=== PATIENT | female | born 1945 | race Caucasian/White ===

== ENCOUNTER 2019-06-30 12:16 | Inpatient (IN) | payer MEDICARE ==
[2019-06-30] MEDS ORDERED: MORPHINE SULFATE 2 MG/ML SYRINGE IVP ONE (12:32)
[2019-06-30] MEDS ORDERED: SODIUM CHLORIDE 0.9% 1,000 ML IV ONE (12:32)
[2019-06-30] MEDS ORDERED: ONDANSETRON 4 MG/2 ML VIAL IVP STA (12:33)
--- NOTE | 2019-06-30 12:38 | ED ---
Abdominal Pain HPI - General Source: patient, RN notes reviewed, old records reviewed Mode of arrival: wheelchair Limitations: no limitations <Kalpana Little - Last Filed: 06/30/19 15:27> <Shen Sapp - Last Filed: 06/30/19 16:05> - General Chief Complaint: Abdominal Pain Stated Complaint: abd pain Time Seen by Provider: 06/30/19 12:22 - History of Present Illness Initial Comments: Vandana is a 74-year-old female who presents emergency department today for evaluation for left lower quadrant abdominal pain symptoms for the last 4-5 days. Patient reports that she has had poor appetite for the past 5 days and is only been drinking water. She states that she feels somewhat constipated she's not had a bowel movement.. She reports that she is still passing gas. She denies any vomiting. She denies any history of surgeries on her abdomen. She is a smoker. (Kalpana Little) - Related Data Allergies Allergy/AdvReac Type Severity Reaction Status Date / Time varenicline [From Chantix] Allergy Anaphylaxis Verified 06/30/19 15:52 Review of Systems ROS Other: All systems not noted in ROS Statement are negative. <Kalpana Little - Last Filed: 06/30/19 15:27> ROS Other: All systems not noted in ROS Statement are negative. <Shen Sapp - Last Filed: 06/30/19 16:05> ROS Statement: Those systems with pertinent positive or pertinent negative responses have been documented in the HPI. Past Medical History Past Medical History: Asthma, Thyroid Disorder Past Surgical History: No Surgical Hx Reported Smoking Status: Current every day smoker Past Alcohol Use History: None Reported Past Drug Use History: None Reported <Kalpana Little - Last Filed: 06/30/19 15:27> General Exam Limitations: no limitations Head exam: Present: atraumatic, normocephalic, normal inspection Eye exam: Present: normal appearance, PERRL, EOMI. Absent: scleral icterus, conjunctival injection, periorbital swelling ENT exam: Present: normal exam, mucous membranes moist Neck exam: Present: normal inspection. Absent: tenderness, meningismus, lymphadenopathy Respiratory exam: Present: normal lung sounds bilaterally. Absent: respiratory distress, wheezes, rales, rhonchi, stridor Cardiovascular Exam: Present: regular rate, normal rhythm, normal heart sounds. Absent: systolic murmur, diastolic murmur, rubs, gallop, clicks GI/Abdominal exam: Present: soft, tenderness (LLQ tenderness), normal bowel sounds. Absent: distended, guarding, rebound, rigid Extremities exam: Present: normal inspection, full ROM, normal capillary refill. Absent: tenderness, pedal edema, joint swelling, calf tenderness Back exam: Present: normal inspection Neurological exam: Present: alert, oriented X3, CN II-XII intact Psychiatric exam: Present: normal affect, normal mood Skin exam: Present: warm, dry, intact, normal color. Absent: rash <Kalpana Little - Last Filed: 06/30/19 15:27> - General Exam Comments Initial Comments: 74-year-old female. Patient appears in moderate discomfort. (Kalpana Little) Course Vital Signs 06/30/19 06/30/19 12:17 14:00 Temperature 97.7 F Pulse Rate 97 89 Respiratory 18 18 Rate Blood Pressure 107/70 132/80 O2 Sat by Pulse 97 96 Oximetry Medical Decision Making - Lab Data Result diagrams: 06/30/19 12:37 06/30/19 12:37 - Radiology Data Radiology results: report reviewed <Kalpana Little - Last Filed: 06/30/19 15:27> - Lab Data Result diagrams: 06/30/19 12:37 06/30/19 12:37 <Shen Sapp - Last Filed: 06/30/19 16:05> - Medical Decision Making This patient's a 74-year-old female presents emergency department today with left lower quadrant abdominal pain. She initially thought it was related to constipation. Vital signs are stable. She is a long smoking history. Patient at this time has no vomiting. She denies some left lower quadrant tenderness and guarding. Patient had lab work which showed normal lactic acid normal white blood cell,. Hemoglobin is 10. Patient has no previous labs to compare from. She's had no previous CT scans. Due to tenderness CAT scan was completed. There is evidence of aortic occlusion with reconstitution and femoral arteries. Patient does have dorsalis pedis and posterior tibial pulse auscultated on Doppler bilaterally. Extremity's are warm. No concern for acute occlusion I believe that this is likely chronic and patient has collateral vessels. CT also showed evidence of pleural masses concerning for metastases as well as possible mass or on the pancreatic duct. Computed tomography scan shows no evidence of diverticulitis. Is also evidence of lytic lesions over her right L4-L5. Patient was reevaluated continuing to complain of significant left-sided abd ominal pain. Patient was informed of concern for aortic occlusion, pleural masses, and I discussed the elect admit the Patient. Patient's case was discussed with Dr. Sapp. (Kalpana Little) Patient reexamined and reevaluated by myself, Dr. Sapp. Patient resting comfortably in bed. Patient does have moderate left lower abdominal discomfort on exam. Case was discussed with Dr. Crowley, who will admit for hospital call. Case also discussed with Dr. Pederson with vascular who will consult however does not believe patient has emergent vascular concerns. Consults will be placed with surgery as well as oncology. Patient is updated on results and concerns. (Shen Sapp) - Lab Data Lab Results 06/30/19 06/30/19 06/30/19 Range/Units 12:37 12:37 12:37 WBC 9.8 (3.8-10.6) k/uL RBC 3.57 L (3.80-5.40) m/uL Hgb 10.8 L (11.4-16.0) gm/dL Hct 33.5 L (34.0-46.0) % MCV 93.9 (80.0-100.0) fL MCH 30.2 (25.0-35.0) pg MCHC 32.2 (31.0-37.0) g/dL RDW 14.4 (11.5-15.5) % Plt Count 418 (150-450) k/uL Neutrophils % 75 % Lymphocytes % 16 % Monocytes % 5 % Eosinophils % 1 % Basophils % 0 % Neutrophils # 7.3 (1.3-7.7) k/uL Lymphocytes # 1.6 (1.0-4.8) k/uL Monocytes # 0.5 (0-1.0) k/uL Eosinophils # 0.1 (0-0.7) k/uL Basophils # 0.0 (0-0.2) k/uL PT 9.8 (9.0-12.0) sec INR 0.9 (<1.2) APTT 27.8 (22.0-30.0) sec Sodium 135 L (137-145) mmol/L Potassium 3.9 (3.5-5.1) mmol/L Chloride 101 (98-107) mmol/L Carbon Dioxide 27 (22-30) mmol/L Anion Gap 7 mmol/L BUN 14 (7-17) mg/dL Creatinine 0.64 (0.52-1.04) mg/dL Est GFR (CKD-EPI)AfAm >90 (>60 ml/min/1.73 sqM) Est GFR (CKD-EPI)NonAf 87 (>60 ml/min/1.73 sqM) Glucose 106 H (74-99) mg/dL Plasma Lactic Acid Tal (0.7-2.0) mmol/L Calcium 9.0 (8.4-10.2) mg/dL Total Bilirubin 0.3 (0.2-1.3) mg/dL AST 19 (14-36) U/L ALT 10 (4-34) U/L Alkaline Phosphatase 89 (38-126) U/L Total Protein 6.2 L (6.3-8.2) g/dL Albumin 3.2 L (3.5-5.0) g/dL Amylase 41 (30-110) U/L Lipase 49 (23-300) U/L Urine Color Urine Appearance (Clear) Urine pH (5.0-8.0) Ur Specific [place] (1.001-1.035) Urine Protein (Negative) Urine Glucose (UA) (Negative) Urine Ketones (Negative) Urine Blood (Negative) Urine Nitrite (Negative) Urine Bilirubin (Negative) Urine Urobilinogen (<2.0) mg/dL Ur Leukocyte Esterase (Negative) Urine RBC (0-5) /hpf Urine WBC (0-5) /hpf Ur Squamous Epith Cells (0-4) /hpf Urine Bacteria (None) /hpf Urine Mucus (None) /hpf 06/30/19 06/30/19 Range/Units 12:37 Unknown WBC (3.8-10.6) k/uL RBC (3.80-5.40) m/uL Hgb (11.4-16.0) gm/dL Hct (34.0-46.0) % MCV (80.0-100.0) fL MCH (25.0-35.0) pg MCHC (31.0-37.0) g/dL RDW (11.5-15.5) % Plt Count (150-450) k/uL Neutrophils % % Lymphocytes % % Monocytes % % Eosinophils % % Basophils % % Neutrophils # (1.3-7.7) k/uL Lymphocytes # (1.0-4.8) k/uL Monocytes # (0-1.0) k/uL Eosinophils # (0-0.7) k/uL Basophils # (0-0.2) k/uL PT (9.0-12.0) sec INR (<1.2) APTT (22.0-30.0) sec Sodium (137-145) mmol/L Potassium (3.5-5.1) mmol/L Chloride (98-107) mmol/L Carbon Dioxide (22-30) mmol/L Anion Gap mmol/L BUN (7-17) mg/dL Creatinine (0.52-1.04) mg/dL Est GFR (CKD-EPI)AfAm (>60 ml/min/1.73 sqM) Est GFR (CKD-EPI)NonAf (>60 ml/min/1.73 sqM) Glucose (74-99) mg/dL Plasma Lactic Acid Tal 1.8 (0.7-2.0) mmol/L Calcium (8.4-10.2) mg/dL Total Bilirubin (0.2-1.3) mg/dL AST (14-36) U/L ALT (4-34) U/L Alkaline Phosphatase (38-126) U/L Total Protein (6.3-8.2) g/dL Albumin (3.5-5.0) g/dL Amylase (30-110) U/L Lipase (23-300) U/L Urine Color Yellow Urine Appearance Clear (Clear) Urine pH 6.0 (5.0-8.0) Ur Specific [place] 1.021 (1.001-1.035) Urine Protein Negative (Negative) Urine Glucose (UA) Negative (Negative) Urine Ketones Negative (Negative) Urine Blood Negative (Negative) Urine Nitrite Negative (Negative) Urine Bilirubin Negative (Negative) Urine Urobilinogen 2.0 (<2.0) mg/dL Ur Leukocyte Esterase Moderate H (Negative) Urine RBC 2 (0-5) /hpf Urine WBC 5 (0-5) /hpf Ur Squamous Epith Cells 8 H (0-4) /hpf Urine Bacteria Rare H (None) /hpf Urine Mucus Few H (None) /hpf - Radiology Data Focal distal abdominal aortic occlusion with reconstitution of the bilateral femoral arteries. Courtesy is unknown. Vascular surgeon consult recommended. Multiple pleural based masses along the left lung base and pleural Suleiman. Metastasis is a primary consideration. Primary neoplasm is unknown. Dilation of the main pancreatic duct prominence of the common bile duct.. Capillary masses possibility. MRI with contrast to be considered. No CT evidence of acute diverticulitis. Lytic lesions of the right iliac bone and L4 spinous process. Given this suspiciion for pleural metastases these may represent metastatic lesions. (Kalpana Little) Disposition Is patient prescribed a controlled substance at d/c from ED?: No Time of Disposition: 15:29 <Kalpana Little - Last Filed: 06/30/19 15:27> <Shen Sapp - Last Filed: 06/30/19 16:05> Clinical Impression: Chronic distal aortic occlusion, Pleural mass, Left sided abdominal pain Disposition: ADMITTED IP TO THIS HOSP Condition: Stable Referrals: Nonstaff,Physician [REFERRING] - 1-2 days
[2019-06-30 12:49] LABS: Basophils % (A) 0 %; Eosinophils # (A) 0.1 k/uL (0-0.7); Eosinophils % (A) 1 %; HCT 33.5 % (34.0-46.0); HGB 10.8 gm/dL (11.4-16.0); Lymphocytes # (A) 1.6 k/uL (1.0-4.8); Lymphocytes % (A) 16 %; MCH 30.2 pg (25.0-35.0); MCHC 32.2 g/dL (31.0-37.0); MCV 93.9 fL (80.0-100.0); Mean Platelet Volume 7.2; Monocytes # (A) 0.5 k/uL (0-1.0); Monocytes % (A) 5 %; Neutrophils # (A) 7.3 k/uL (1.3-7.7); Neutrophils % (A) 75 %; Platelet Count 418 k/uL (150-450); RBC 3.57 m/uL (3.80-5.40); RDW 14.4 % (11.5-15.5); WBC 9.8 k/uL (3.8-10.6)
[2019-06-30] MEDS: SODIUM CHLORIDE 0.9% 1,000 ML IV SCH (12:56)
[2019-06-30 13:04] LABS: ALT 10 U/L (4-34); AST 19 U/L (14-36); African American GFR (CKD) >90 (>60 ml/min/1.73 sqM); Albumin 3.2 g/dL (3.5-5.0); Alkaline Phosphatase 89 U/L (38-126); Amylase 41 U/L (30-110); Anion Gap 7 mmol/L; Blood Urea Nitrogen 14 mg/dL (7-17); Carbon Dioxide 27 mmol/L (22-30); Chloride 101 mmol/L (98-107); Glucose 106 mg/dL (74-99); INR 0.9 (<1.2); Non-African American GFR(CKD) 87 (>60 ml/min/1.73 sqM); Potassium 3.9 mmol/L (3.5-5.1); Sodium 135 mmol/L (137-145); Total Bilirubin 0.3 mg/dL (0.2-1.3); Total Protein 6.2 g/dL (6.3-8.2)
[2019-06-30 13:05] LABS: Partial Thromboplastin Time 27.8 sec (22.0-30.0); Prothrombin Time 9.8 sec (9.0-12.0)
[2019-06-30 13:38] LABS: Appearance,Urine Clear (Clear); Bacteria,Urine Rare /hpf; Bilirubin,Urine Negative (Negative); Blood,Urine Negative (Negative); Color,Urine Yellow; Glucose,Urine (UA) Negative (Negative); Ketones,Urine Negative (Negative); Leukocyte Esterase,Urine Moderate (Negative); Mucus,Urine Few /hpf; Nitrite,Urine Negative (Negative); Protein,Urine Negative (Negative); RBC,Urine 2 /hpf (0-5); Specific Gravity,Urine 1.021 (1.001-1.035); Squamous Epithelial Cell,Urine 8 /hpf (0-4); WBC,Urine 5 /hpf (0-5)
--- NOTE | 2019-06-30 14:52 | CT ---
EXAMINATION TYPE: CT abdomen pelvis w con DATE OF EXAM: 06/30/2019 HISTORY: LLQ abdominal pain, suspected diverticulitis CT DLP: 761.7mGycm Automated Exposure Control for Dose Reduction was Utilized. CONTRAST: CT scan of the abdomen and pelvis is performed with IV Contrast, patient injected with 100 mL of Isov ue 300. COMPARISON: None. FINDINGS: LUNG BASES: A pleural-based mass along the medial left lower lobe and multiple pleural-based pulmonar y nodules with central hypoattenuation are partially visualized. The largest measures 3.2 x 3.6 cm ma rked on image 1. Multifocal atelectasis is seen of the lung bases, left greater than right as well as multiple benign calcified bilateral granulomas. LIVER/GB: Scattered benign hepatic granulomas. Low-density 2 small to accurately characterize right h epatic lesion on image 29 measuring 5 mm. PANCREAS: There is main pancreatic ductal dilatation of 3.5 cm in the pancreatic body. Although no di screte pancreatic neoplasm is seen there is also prominence of the common bile duct measuring 7 mm th erefore periampullary mass is possible. Pancreatic ductal dilatation could alternatively be on the ba sis of chronic pancreatitis although no calcifications are seen within the parenchyma to support concrete pipe maker sophia pancreatitis. SPLEEN: Numerous splenic benign granulomas are seen. No splenomegaly. ADRENALS: No significant abnormality is seen. KIDNEYS: Slightly lobular contour of the kidneys. No hydronephrosis nor abnormal enhancement seen oth er than a punctate 3 mm medial right cortical too small to accurately characterize lesion on delayed image 18 and in the left lower pole on image 26. BOWEL: There is a moderate hiatal hernia. Appendix is air-filled and within normal limits of size. Mi ld degree colonic fecal stasis in the right hemicolon. Air-fluid levels are scattered within nondilat ed fluid containing small bowel. Overall mild ileus. Stomach is incompletely distended and suboptimal ly visualized. Mild oral contrast limits evaluation of the bowel. UTERUS/ADNEXA: No gross abnormality seen on CT. Pelvic viscera are better visualized on ultrasound. LYMPH NODES: No greater than 1cm abdominal or pelvic lymph nodes are appreciated. OSSEOUS STRUCTURES: Age indeterminant compression deformity with approximately 10% vertebral body hei ght loss is seen of L1. Retrolisthesis of L2 on L3 and L3 on L4 with grade 1 anterolisthesis of L4 on L5 are all likely on a degenerative basis. Endplate sclerosis is most pronounced at L3-L4. Vacuum di sc disease is seen at multiple levels. Multilevel facet arthropathy. Lucent lesion is seen within the L4 spinous process measuring 1.1 cm and is indeterminate. Lytic lesion is seen of the anterior zee x of the right iliac bone on image 36 measuring 8 mm. OTHER: Extensive atherosclerosis is seen of the abdominal aorta and its branches with short segment o cclusion of the abdominal aorta on image 35 and very poor opacification of the common iliac arteries with reconstitution of the bilateral femoral arteries. IMPRESSION: 1. Focal distal abdominal aortic occlusion with reconstitution of the bilateral femoral arteries. Chr onicity is unknown. Vascular surgical consultation recommended. Findings discussed with the ordering provider Kalpana Little by Dr. Ayala at 1448 on 06/30/2019. 2. Multiple pleural-based masses along the visualized left lung/pleural studding. Metastasis is of pr imary consideration. Primary neoplasm unknown. 3. Dilation of the main pancreatic duct and prominence of the common bile duct. Periampullary mass is a possibility and MRI with contrast could be considered for further evaluation. 4. No CT evidence of acute diverticulitis. 5. Lytic lesions of the right iliac bone and L4 spinous process. Given the suspicion for pleural meta stasis these also may represent metastatic lesions.
[2019-06-30] MEDS ORDERED: MORPHINE SULFATE 4 MG/ML SYRINGE IVP STA (15:10)
[2019-06-30] MEDS ORDERED: ONDANSETRON 4 MG/2 ML VIAL IVP PRN (15:30)
[2019-06-30] MEDS ORDERED: NALOXONE 0.4 MG/ML 1 ML VIAL IV PRN (15:30)
[2019-06-30] MEDS ORDERED: KETOROLAC 30 MG/ML 1 ML VIAL IVP PRN (15:30)
[2019-06-30] MEDS ORDERED: IBUPROFEN 400 MG TAB PO PRN (15:30)
[2019-06-30] MEDS ORDERED: ACETAMINOPHEN TAB 325 MG TAB PO PRN (15:30)
[2019-06-30] MEDS ORDERED: TEMAZEPAM 15 MG CAP PO PRN (16:30)
--- NOTE | 2019-06-30 17:01 | XR ---
EXAMINATION TYPE: XR chest 1V portable DATE OF EXAM: 06/30/2019 COMPARISON: None INDICATION: Lung cancer TECHNIQUE: Single frontal view of the chest is obtained. FINDINGS: The heart size is normal. The pulmonary vasculature is normal. There are small nodules within the bilateral lung cartagena including lateral left midlung mid right mid lung and right lung base. Increased linear markings and fullness in her in the left hilar region. Mil d infiltrate may be at the right base. IMPRESSION: 1. Mild infiltrate at the right lower lobe and left perihilar region. 2. Scattered small nodules within the mid lower lung cartagena bilaterally.
--- NOTE | 2019-06-30 17:13 | CT ---
EXAMINATION TYPE: CT chest wo con DATE OF EXAM: 06/30/2019 COMPARISON: CT abdomen pelvis same date HISTORY: lung mass CT DLP: 279.6 mGycm, Automated exposure control for dose reduction was used. CONTRAST: Performed injected with 0 mL of Isovue 300. TECHNIQUE: Axial images were obtained at 5 mm thick sections. Reconstructed images are reviewed on [facility] computer in the coronal plane. FINDINGS: Thyroid is not well visualized. There is pleural thickening at the lateral left apex. These measure 1.7 cm each, image 9 series 204. There is a 2.1 cm pleural-based mass along the medial posterior left apex. Image 12 image 204. There is a mass with spiculated margins measuring 2.4 cm in the periphery of the left lung. Series 204 imag e 22. There is a lytic lesion within the anterior rib on the left midlung. Series 204 image 34. This has so me apparent pleural thickening and measures 1.6 cm in depth. Additional lytic lesions are within late ral left ribs there is extensive pleural thickening at the left base. There is a lingular mass measuring 2.1 x 1.1 cm, series 204 image 36. Scattered calcifications appear well-circumscribed and likely granuloma. An eccentric calcification i s within one of the masses at the left apex. No enlarged mediastinal or hilar adenopathy is evident. Calcified granuloma are at the bilateral in frahilar regions. The ascending aorta diameter at the level of the main pulmonary artery is 3.8 cm. The main pulmonary artery diameter at the bifurcation is 2.8 cm. Hiatal hernia is present. Limited CT sections are obtained through the upper abdomen. Calcified granuloma are scattered within the spleen. A few calcified granuloma are suspected within the liver. On bone windows note is made of a large lytic lesion within the posterior medial left 12th rib region which has close approximation with the exiting foramen. Superior endplate compression deformity of t anterior L1 is of indeterminate age. This could be acute in the proper clinical setting. Right 11th medial rib ninth medial posterior rib fourth lateral rib left side, anterior left fifth ri b, sixth lateral rib ninth lateral rib are notable for erosive lesions. Graft couple of old right lat eral rib fractures are in the lower rectus. IMPRESSIONS: 1. Other at least 2 solid appearing lesions within the left upper and within the lingular lung cartagena . The left upper lobe spiculated mass measuring 2.4 cm could be a primary lesion. 2. Extensive pleural-based lesions, the majority of which appear to be arising from lytic lesions wit hin the ribs adjacent are throughout the left upper mid and lower lung field. 3. There appear to be calcified granulomatous lesions, lymphadenopathy within the mediastinum, an mary er and splenic lesions which may be chronic. 4. Superior endplate compression deformity in the region of L1 should be considered. Correlate with t he patient's symptoms
--- NOTE | 2019-06-30 17:14 | HP ---
HISTORY AND PHYSICAL DATE OF SERVICE: 06/30/2019 CHIEF COMPLAINT: Abdominal pain and as well as anorexia. HISTORY OF PRESENT ILLNESS: This is a 74-year-old woman with a past medical history of multiple medical problems including history of asthma, hypothyroidism, history of nicotine dependence, being followed by Dr. Yousuf Wallace in the outpatient setting, not feeling well over the past 4 days. Patient has a poor appetite and the patient is monitoring water. The patient was previously constipated. Patient apparently had one episode of diarrhea and the patient is subsequently complaining of pain in the left lower quadrant. Patient also has significant weight loss over the past several weeks and also felt to be anemic according to her. A CAT scan of the abdomen was done in the ER which showed multiple findings including focal distal abdominal aortic occlusion with reconstitution of the bilateral femoral arteries and multiple pleural-based masses were noted with left lung and pleural stenting and also some dilatation of the main pancreatic duct was also noted. Hepatic ampullary mass is a possibility. Lytic lesion of the right iliac bone with L4 spinous process also noted. The patient was admitted for further evaluation and treatment. There is no history of fever, chills or rigors. No history of headache, loss of consciousness, seizures. PAST MEDICAL HISTORY: Asthma, hypothyroidism, history of nicotine dependence. MEDICATIONS: Prior to admission include: 1. Levothyroxine 137 mcg p.o. daily. 2. Lipitor 80 mg q.h.s. 3. Tylenol 1000 mg p.o. b.i.d. ALLERGIES: CHANTIX. FAMILY HISTORY: No history of heart disease or strokes in the family. SOCIAL HISTORY: History of smoking, no history of alcohol intake. REVIEW OF SYSTEMS: ENT: No diminished vision. CARDIOVASCULAR: No angina. RESPIRATION: No cough. GI: As mentioned earlier. : As mentioned earlier. NERVOUS SYSTEM: No numbness, weakness. ALLERGY/IMMUNOLOGY: As mentioned earlier HEMATOLOGY: No history of anemia. ENDOCRINE: Hypothyroidism. CONSTITUTIONAL: As mentioned earlier. DERMATOLOGY: Negative. RHEUMATOLOGY: Negative. PSYCHIATRY: As mentioned earlier. PHYSICAL EXAM: Patient is alert, oriented x3. Pulse is 89, blood pressure 132/80, respiration 18, temperature 97.7, pulse ox 98% on room air. HEENT: Oral mucosa moist. NECK: No jugular venous distention. No lymph node enlargement. CARDIOVASCULAR: S1, S2, muffled. RESPIRATION: Breath sounds diminished at the bases. No rhonchi. No crackles. ABDOMEN: Soft, mild diffuse tenderness. Mild diffuse distension in the lower part present, even turning in the bed is also difficult for the patient. Bowel sounds diminished, no ascites. LEGS: No edema, no swelling. NERVOUS SYSTEM: Higher functions as mentioned earlier. Moves all 4 limbs. No focal motor or sensory deficit. LYMPHATICS: No lymph node enlargement in the neck or axillae. SKIN: No ulcer, rash or bleeding. JOINTS: No ulcers in the joints, no active deforming arthropathy. LABS: WBC is 9.8, hemoglobin is 10.8, sodium 135, albumin is 2.2, UA noted. ASSESSMENT: 1. Left lower quadrant abdominal pain with lytic lesions in the right iliac bone and L4 spinous process, rule out malignancy. 2. Focal abdominal aortic occlusion with reconstitution with bilateral femoral arteries with possibly aortic atherosclerosis. 3. Multiple pleural-based masses based on the left lung pleural area. 4. Hyponatremia. 5. Anemia, normocytic anemia of chronic disease. 6. Significant weight loss recently. 7. History of asthma. 8. Hypothyroidism. 9. History of an ongoing nicotine dependence. RECOMMENDATIONS AND DISCUSSION: This is a 74-year-old woman who presented with multiple complex medical issues. At this time, I recommend to continue current medications, symptomatic treatment. Otherwise, infectious etiology of the abdominal pain is unlikely at this time. However, will continue to monitor. The patient had multiple abnormalities on the CAT scan of abdomen. I would also recommend a CAT scan of the chest and CT of the head to complete the workup. Otherwise, CA-125 is also being ordered. Will recommend evaluation with Gastroenterology and Surgery and continue to monitor. Further recommendations to follow. A copy of this dictation being forwarded to Endovascular and also a copy to be forwarded to Dr. Yousuf Wallace who is the primary physician. MMODL / IJN: [id number] /
--- NOTE | 2019-06-30 18:52 | P.CONS ---
History of Present Illness - Reason for Consult Consult date: 06/30/19 Appearance of metastatic cancer Requesting physician: Kalpana Little - Chief Complaint Abdominal Pain - History of Present Illness Ms Knox is a 74-year-old female who presented to the emergency department 06/30/19 with left lower quadrant abdominal pain. She initially thought it was related to constipation. She denied nausea or vomiting. CT scan of abdomen and pelvis was performed secondary to her complaints. Identified was concern of possible mass in relation to pancreatic duct as well as suspicious pleural masses, concerning for metastatic disease. There was suspicious evidence of lytic lesions over L4, L5 therefore oncology has been consulted. Vascular also was notified for aortic occlusion. Her bloodwork is stable, with the exception of some mild normocytic anemia. patient was seen through telemed visit.Her symptoms started about a week ago and it has been hard to eat, therefore weight loss, unsure of how much in a week. She denies recent visits for mammogram or colonoscopy, states it has been a few years. She asked me to call sister Zehra regarding situation. Review of Systems A 14 point review of systems assessed and completed and all negative except HPI Past Medical History Past Medical History: Asthma, Thyroid Disorder Past Surgical History: No Surgical Hx Reported Smoking Status: Current every day smoker Past Alcohol Use History: None Reported Past Drug Use History: None Reported Medications and Allergies Home Medications Medication Instructions Recorded Confirmed Type Acetaminophen Tab [Tylenol Tab] 1,000 mg PO BID 06/30/19 06/30/19 History Atorvastatin [Lipitor] 80 mg PO HS 06/30/19 06/30/19 History Levothyroxine Sodium 137 mcg PO DAILY 06/30/19 06/30/19 History Allergies Allergy/AdvReac Type Severity Reaction Status Date / Time varenicline [From Chantix] Allergy Anaphylaxis Verified 06/30/19 15:52 Physical Exam Vitals: Vital Signs Temp Pulse Pulse Resp BP BP Pulse Ox 06/30/19 17:36 97.8 F 92 16 121/71 95 06/30/19 16:50 98.6 F 81 16 100/71 97 06/30/19 14:00 89 18 132/80 96 06/30/19 12:17 97.7 F 97 18 107/70 97 Intake and Output 06/30/19 06/30/19 06/30/19 06:59 14:59 22:59 Other: Weight 52.163 kg Telemed visit with patient No acute distress Alert and oriented No increased respiratory effort noted Results CBC & Chem 7: 06/30/19 12:37 06/30/19 12:37 Labs: Abnormal Lab Results - Last 24 Hours (Table) 06/30/19 06/30/19 06/30/19 Range/Units 12:37 12:37 Unknown RBC 3.57 L (3.80-5.40) m/uL Hgb 10.8 L (11.4-16.0) gm/dL Hct 33.5 L (34.0-46.0) % Sodium 135 L (137-145) mmol/L Glucose 106 H (74-99) mg/dL Total Protein 6.2 L (6.3-8.2) g/dL Albumin 3.2 L (3.5-5.0) g/dL Ur Leukocyte Esterase Moderate H (Negative) Ur Squamous Epith Cells 8 H (0-4) /hpf Urine Bacteria Rare H (None) /hpf Urine Mucus Few H (None) /hpf CT scan - abdomen: report reviewed CT scan - chest: report reviewed CT scan - pelvis: report reviewed Assessment and Plan Plan: Assessment and Recommendations: Pleural Masses: - Suspicious for malignancy - likely metastatic Abnormality near Pancreatic Duct: - MR is ordered - GI on consult to evaluate - If further suspicion of pancreatic malignancy will need tissue biopsy Normocytic Anemia: - WOrk-up placed Aortic Occlusion: - Per Vascular Overall picture is highly suspicious for metastatic malignant process: - MRI of the brain and bone scan ordered - Interventional Radiology asked to obtain biopsy of peripheral pleural lung nodule - Further recs to follow Sister Zehra will be called per patients request. Thank you for allowing us to participate in the care of this patient we will follow along with you
[2019-06-30] MEDS: MORPHINE SULFATE 4 MG/ML SYRINGE IV PRN (19:16)
[2019-06-30] MEDS: NICOTINE 14MG/24HR PATCH TRANSDERM SCH (19:19)
[2019-06-30 20:00] LABS: Glucose,Whole Blood 143 mg/dL (75-99)
[2019-06-30] MEDS: HYDROcodone/APAP 5-325MG 1 EACH TAB PO PRN (21:00)
[2019-06-30] MEDS: HEPARIN SODIUM,PORCINE 5,000 UNIT/ML 1 ML VIAL SQ SCH (21:00)
[2019-06-30] MEDS: ATORVASTATIN 80 MG TAB PO SCH (21:00)
[2019-06-30] MEDS: SENNOSIDES-DOCUSATE SODIUM 1 EACH TAB PO SCH (21:01)
[2019-07-01] MEDS: SODIUM CHLORIDE 0.9% 1,000 ML IV SCH ×3 (00:05→14:56)
[2019-07-01] MEDS: MORPHINE SULFATE 4 MG/ML SYRINGE IV PRN ×4 (00:09→19:51)
[2019-07-01] MEDS: LEVOTHYROXINE 137 MCG TAB PO SCH (05:39)
[2019-07-01 06:29] LABS: Basophils % (A) 0 %; Eosinophils # (A) 0.2 k/uL (0-0.7); Eosinophils % (A) 2 %; HCT 30.1 % (34.0-46.0); HGB 9.7 gm/dL (11.4-16.0); Lymphocytes # (A) 1.3 k/uL (1.0-4.8); Lymphocytes % (A) 17 %; MCH 30.8 pg (25.0-35.0); MCHC 32.4 g/dL (31.0-37.0); MCV 95.1 fL (80.0-100.0); Mean Platelet Volume 7.6; Monocytes # (A) 0.5 k/uL (0-1.0); Monocytes % (A) 6 %; Neutrophils # (A) 5.7 k/uL (1.3-7.7); Neutrophils % (A) 73 %; Platelet Count 416 k/uL (150-450); RBC 3.16 m/uL (3.80-5.40); RDW 14.6 % (11.5-15.5); WBC 7.9 k/uL (3.8-10.6)
[2019-07-01 06:39] LABS: African American GFR (CKD) >90 (>60 ml/min/1.73 sqM); Amylase 55 U/L (30-110); Anion Gap 3 mmol/L; Blood Urea Nitrogen 9 mg/dL (7-17); Calcium 8.7 mg/dL (8.4-10.2); Carbon Dioxide 28 mmol/L (22-30); Chloride 107 mmol/L (98-107); Glucose 73 mg/dL (74-99); LDH 329 U/L (313-618); Non-African American GFR(CKD) 86 (>60 ml/min/1.73 sqM); Potassium 4.3 mmol/L (3.5-5.1); Sodium 138 mmol/L (137-145)
[2019-07-01 07:27] LABS: Glucose,Whole Blood 113 mg/dL (75-99)
[2019-07-01] MEDS: NICOTINE 14MG/24HR PATCH TRANSDERM SCH (08:05)
[2019-07-01] MEDS: POLYETHYLENE GLYCOL 3350 17 GM POWD.PACK PO SCH (08:06)
[2019-07-01] MEDS: PANTOPRAZOLE 40 MG/10 ML VIAL IV SCH (08:06)
[2019-07-01] MEDS: HEPARIN SODIUM,PORCINE 5,000 UNIT/ML 1 ML VIAL SQ SCH ×2 (08:06→20:30)
[2019-07-01] MEDS: SENNOSIDES-DOCUSATE SODIUM 1 EACH TAB PO SCH ×2 (08:06→20:30)
--- NOTE | 2019-07-01 09:38 | P.GSCN ---
History of Present Illness Consult date: 07/01/19 History of present illness: 74-year-old female presented to the emergency department with complaints of abdominal pain. She states that the pain was mostly in the left lower quadrant. She states that the pain has been going on for approximately a week and has not improved. She also states that she is having difficulty having a bowel movement. She states that over the past week, her diet has mostly consisted of only liquids. She did have breakfast this morning prior to my exam. She denies any nausea or vomiting episodes. She denies any previous surgical history of the abdomen. CT of the abdomen and pelvis was performed that did show dilation of the pancreatic duct and concern for a possible ampullary mass. She has not noted to have any abnormalities of her liver function panel at this time. There is also evidence of aortic occlusion with distal revascularization and vascular surgery is following. Review of Systems All systems: negative Past Medical History Past Medical History: Asthma, Thyroid Disorder Additional Past Medical History / Comment(s): left torn rotator cuff, spot on lung that is cancerous see dr barroso, radiation treatments for lung last guess is december, forgetful per son History of Any Multi-Drug Resistant Organisms: None Reported Past Surgical History: No Surgical Hx Reported Past Anesthesia/Blood Transfusion Reactions: No Reported Reaction Past Psychological History: No Psychological Hx Reported Smoking Status: Current every day smoker Past Alcohol Use History: None Reported Additional Past Alcohol Use History / Comment(s): 6 beers a week if that Past Drug Use History: None Reported - Past Family History Mother Family Medical History: Cancer Additional Family Medical History / Comment(s): breast cancer Father Family Medical History: Chest Pain / Angina, Congestive Heart Failure (CHF) Brother(s) Family Medical History: Cancer Additional Family Medical History / Comment(s): cancer everywhere Medications and Allergies Home Medications Medication Instructions Recorded Confirmed Type Acetaminophen Tab [Tylenol Tab] 1,000 mg PO BID 06/30/19 06/30/19 History Atorvastatin [Lipitor] 80 mg PO HS 06/30/19 06/30/19 History Levothyroxine Sodium 137 mcg PO DAILY 06/30/19 06/30/19 History Allergies Allergy/AdvReac Type Severity Reaction Status Date / Time varenicline [From Chantix] Allergy Anaphylaxis Verified 06/30/19 15:52 Surgical - Exam Osteopathic Statement: *. No significant issues noted on an osteopathic structural exam other than those noted in the History and Physical/Consult. Vital Signs Temp Pulse Resp BP Pulse Ox 97.7 F 97 18 107/70 97 06/30/19 12:17 06/30/19 12:17 06/30/19 12:17 06/30/19 12:17 06/30/19 12:17 - General well nourished, no distress - Eyes PERRL - ENT no hearing loss - Neck trachea midline - Respiratory normal respiratory effort - Abdomen Soft, no significant tenderness throughout the abdomen, nondistended, no rebound, no guarding - Psychiatric oriented to time, oriented to person, oriented to place Results - Labs 07/01/19 05:55 07/01/19 05:55 Abnormal Lab Results - Last 24 Hours (Table) 06/30/19 06/30/19 06/30/19 Range/Units 12:37 12:37 19:59 RBC 3.57 L (3.80-5.40) m/uL Hgb 10.8 L (11.4-16.0) gm/dL Hct 33.5 L (34.0-46.0) % Sodium 135 L (137-145) mmol/L Glucose 106 H (74-99) mg/dL POC Glucose (mg/dL) 143 H (75-99) mg/dL Total Protein 6.2 L (6.3-8.2) g/dL Albumin 3.2 L (3.5-5.0) g/dL Ur Leukocyte Esterase (Negative) Ur Squamous Epith Cells (0-4) /hpf Urine Bacteria (None) /hpf Urine Mucus (None) /hpf 06/30/19 07/01/19 07/01/19 Range/Units Unknown 05:55 05:55 RBC 3.16 L (3.80-5.40) m/uL Hgb 9.7 L (11.4-16.0) gm/dL Hct 30.1 L (34.0-46.0) % Sodium (137-145) mmol/L Glucose 73 L (74-99) mg/dL POC Glucose (mg/dL) (75-99) mg/dL Total Protein (6.3-8.2) g/dL Albumin (3.5-5.0) g/dL Ur Leukocyte Esterase Moderate H (Negative) Ur Squamous Epith Cells 8 H (0-4) /hpf Urine Bacteria Rare H (None) /hpf Urine Mucus Few H (None) /hpf 07/01/19 Range/Units 07:14 RBC (3.80-5.40) m/uL Hgb (11.4-16.0) gm/dL Hct (34.0-46.0) % Sodium (137-145) mmol/L Glucose (74-99) mg/dL POC Glucose (mg/dL) 113 H (75-99) mg/dL Total Protein (6.3-8.2) g/dL Albumin (3.5-5.0) g/dL Ur Leukocyte Esterase (Negative) Ur Squamous Epith Cells (0-4) /hpf Urine Bacteria (None) /hpf Urine Mucus (None) /hpf Microbiology - Last 24 Hours (Table) 06/30/19 Unknown Urine Culture - Preliminary Urine,Voided Diabetes panel 06/30/19 07/01/19 Range/Units 12:37 05:55 Sodium 135 L 138 (137-145) mmol/L Potassium 3.9 4.3 (3.5-5.1) mmol/L Chloride 101 107 (98-107) mmol/L Carbon Dioxide 27 28 (22-30) mmol/L BUN 14 9 (7-17) mg/dL Creatinine 0.64 0.67 (0.52-1.04) mg/dL Glucose 106 H 73 L (74-99) mg/dL Calcium 9.0 8.7 (8.4-10.2) mg/dL AST 19 (14-36) U/L ALT 10 (4-34) U/L Alkaline Phosphatase 89 (38-126) U/L Total Protein 6.2 L (6.3-8.2) g/dL Albumin 3.2 L (3.5-5.0) g/dL Calcium panel 06/30/19 07/01/19 Range/Units 12:37 05:55 Calcium 9.0 8.7 (8.4-10.2) mg/dL Albumin 3.2 L (3.5-5.0) g/dL Pituitary panel 06/30/19 07/01/19 Range/Units 12:37 05:55 Sodium 135 L 138 (137-145) mmol/L Potassium 3.9 4.3 (3.5-5.1) mmol/L Chloride 101 107 (98-107) mmol/L Carbon Dioxide 27 28 (22-30) mmol/L BUN 14 9 (7-17) mg/dL Creatinine 0.64 0.67 (0.52-1.04) mg/dL Glucose 106 H 73 L (74-99) mg/dL Calcium 9.0 8.7 (8.4-10.2) mg/dL Adrenal panel 06/30/19 07/01/19 Range/Units 12:37 05:55 Sodium 135 L 138 (137-145) mmol/L Potassium 3.9 4.3 (3.5-5.1) mmol/L Chloride 101 107 (98-107) mmol/L Carbon Dioxide 27 28 (22-30) mmol/L BUN 14 9 (7-17) mg/dL Creatinine 0.64 0.67 (0.52-1.04) mg/dL Glucose 106 H 73 L (74-99) mg/dL Calcium 9.0 8.7 (8.4-10.2) mg/dL Total Bilirubin 0.3 (0.2-1.3) mg/dL AST 19 (14-36) U/L ALT 10 (4-34) U/L Alkaline Phosphatase 89 (38-126) U/L Total Protein 6.2 L (6.3-8.2) g/dL Albumin 3.2 L (3.5-5.0) g/dL Assessment and Plan Plan: 74-year-old female with suspicious pancreatic lesion and suspected metastatic malignancy. At this point MRI has been ordered for further evaluation. We will await those results and make recommendations based on MRI. Patient may need a tissue biopsy and this may need to be performed with endoscopic ultrasound based on MRI results. Currently, the patient is not in any acute distress requiring urgent surgical intervention. We will continue to follow and make surgical recommendations based on the patient's clinical progress.
[2019-07-01 09:41] VITALS: BMI 21.7
--- NOTE | 2019-07-01 10:40 | P.GSCN ---
History of Present Illness Consult date: 07/01/19 Reason for Consult: aortoiliac occlusion History of present illness: 74 year old female with PMH of asthma, hypothyroidism, nicotine dependence presented to the ER for complaints of abdominal pain, poor appetite and bowel issues including previous constipation and current diarrhea. When in the ER she had left lower quadrant pain and they obtained a CT of the abdomen and pelvis which showed possible pancreatic duct or hepatic ampullary mass with lytic lesions as well as a focal distal aortic occlusion with recon at the femoral arteries. She currently has no complaints of pain in her feet or legs. She does admit to having weakness with ambulation in her legs but no real pain. Weakness presents after walking a couple hundred feet. She denies any pain at rest or history of lower extremity wounds. Currently she denies any fevers, chills, nausea, vomiting, chest pain or shortness of breath. She states her abdominal pain is slightly improved. Review of Systems All systems: negative (what is mentioned in HPI or PMH) Past Medical History Past Medical History: Asthma, Thyroid Disorder Additional Past Medical History / Comment(s): left torn rotator cuff, spot on lung that is cancerous see dr barroso, radiation treatments for lung last guess is december, forgetful per son History of Any Multi-Drug Resistant Organisms: None Reported Past Surgical History: No Surgical Hx Reported Past Anesthesia/Blood Transfusion Reactions: No Reported Reaction Past Psychological History: No Psychological Hx Reported Smoking Status: Current every day smoker Past Alcohol Use History: None Reported Additional Past Alcohol Use History / Comment(s): 6 beers a week if that Past Drug Use History: None Reported - Past Family History Mother Family Medical History: Cancer Additional Family Medical History / Comment(s): breast cancer Father Family Medical History: Chest Pain / Angina, Congestive Heart Failure (CHF) Brother(s) Family Medical History: Cancer Additional Family Medical History / Comment(s): cancer everywhere Medications and Allergies Home Medications Medication Instructions Recorded Confirmed Type Acetaminophen Tab [Tylenol Tab] 1,000 mg PO BID 06/30/19 06/30/19 History Atorvastatin [Lipitor] 80 mg PO HS 06/30/19 06/30/19 History Levothyroxine Sodium 137 mcg PO DAILY 06/30/19 06/30/19 History Allergies Allergy/AdvReac Type Severity Reaction Status Date / Time varenicline [From Chantix] Allergy Anaphylaxis Verified 06/30/19 15:52 Surgical - Exam Vital Signs Temp Pulse Resp BP Pulse Ox 97.7 F 97 18 107/70 97 06/30/19 12:17 06/30/19 12:17 06/30/19 12:17 06/30/19 12:17 06/30/19 12:17 Monophasic dp/pt signals bilaterally Non palpable Femoral, popliteal, dp or pt pulses bilaterally. Slowed capillary refill bilaterally. No wounds, or TTP at the calf bilaterally - General well developed, no distress, moderate pain, chronically ill - Eyes PERRL, normal ocular movement - ENT normal pinna, normal nares - Neck no masses, no bruits - Respiratory normal expansion, normal respiratory effort - Cardiovascular Rhythm: regular - Abdomen Abdomen: tender, no wound, guarding, distended Hernia: none - Integumentary no rash - Neurologic normal coordination, normal sensation, no disoriented - Psychiatric oriented to time, oriented to person, oriented to place, speech is normal Results - Labs 07/01/19 05:55 07/01/19 05:55 Abnormal Lab Results - Last 24 Hours (Table) 06/30/19 06/30/19 06/30/19 Range/Units 12:37 12:37 19:59 RBC 3.57 L (3.80-5.40) m/uL Hgb 10.8 L (11.4-16.0) gm/dL Hct 33.5 L (34.0-46.0) % Sodium 135 L (137-145) mmol/L Glucose 106 H (74-99) mg/dL POC Glucose (mg/dL) 143 H (75-99) mg/dL Total Protein 6.2 L (6.3-8.2) g/dL Albumin 3.2 L (3.5-5.0) g/dL Ur Leukocyte Esterase (Negative) Ur Squamous Epith Cells (0-4) /hpf Urine Bacteria (None) /hpf Urine Mucus (None) /hpf 06/30/19 07/01/19 07/01/19 Range/Units Unknown 05:55 05:55 RBC 3.16 L (3.80-5.40) m/uL Hgb 9.7 L (11.4-16.0) gm/dL Hct 30.1 L (34.0-46.0) % Sodium (137-145) mmol/L Glucose 73 L (74-99) mg/dL POC Glucose (mg/dL) (75-99) mg/dL Total Protein (6.3-8.2) g/dL Albumin (3.5-5.0) g/dL Ur Leukocyte Esterase Moderate H (Negative) Ur Squamous Epith Cells 8 H (0-4) /hpf Urine Bacteria Rare H (None) /hpf Urine Mucus Few H (None) /hpf 07/01/19 Range/Units 07:14 RBC (3.80-5.40) m/uL Hgb (11.4-16.0) gm/dL Hct (34.0-46.0) % Sodium (137-145) mmol/L Glucose (74-99) mg/dL POC Glucose (mg/dL) 113 H (75-99) mg/dL Total Protein (6.3-8.2) g/dL Albumin (3.5-5.0) g/dL Ur Leukocyte Esterase (Negative) Ur Squamous Epith Cells (0-4) /hpf Urine Bacteria (None) /hpf Urine Mucus (None) /hpf Microbiology - Last 24 Hours (Table) 06/30/19 Unknown Urine Culture - Preliminary Urine,Voided Diabetes panel 06/30/19 07/01/19 Range/Units 12:37 05:55 Sodium 135 L 138 (137-145) mmol/L Potassium 3.9 4.3 (3.5-5.1) mmol/L Chloride 101 107 (98-107) mmol/L Carbon Dioxide 27 28 (22-30) mmol/L BUN 14 9 (7-17) mg/dL Creatinine 0.64 0.67 (0.52-1.04) mg/dL Glucose 106 H 73 L (74-99) mg/dL Calcium 9.0 8.7 (8.4-10.2) mg/dL AST 19 (14-36) U/L ALT 10 (4-34) U/L Alkaline Phosphatase 89 (38-126) U/L Total Protein 6.2 L (6.3-8.2) g/dL Albumin 3.2 L (3.5-5.0) g/dL Calcium panel 06/30/19 07/01/19 Range/Units 12:37 05:55 Calcium 9.0 8.7 (8.4-10.2) mg/dL Albumin 3.2 L (3.5-5.0) g/dL Pituitary panel 06/30/19 07/01/19 Range/Units 12:37 05:55 Sodium 135 L 138 (137-145) mmol/L Potassium 3.9 4.3 (3.5-5.1) mmol/L Chloride 101 107 (98-107) mmol/L Carbon Dioxide 27 28 (22-30) mmol/L BUN 14 9 (7-17) mg/dL Creatinine 0.64 0.67 (0.52-1.04) mg/dL Glucose 106 H 73 L (74-99) mg/dL Calcium 9.0 8.7 (8.4-10.2) mg/dL Adrenal panel 06/30/19 07/01/19 Range/Units 12:37 05:55 Sodium 135 L 138 (137-145) mmol/L Potassium 3.9 4.3 (3.5-5.1) mmol/L Chloride 101 107 (98-107) mmol/L Carbon Dioxide 27 28 (22-30) mmol/L BUN 14 9 (7-17) mg/dL Creatinine 0.64 0.67 (0.52-1.04) mg/dL Glucose 106 H 73 L (74-99) mg/dL Calcium 9.0 8.7 (8.4-10.2) mg/dL Total Bilirubin 0.3 (0.2-1.3) mg/dL AST 19 (14-36) U/L ALT 10 (4-34) U/L Alkaline Phosphatase 89 (38-126) U/L Total Protein 6.2 L (6.3-8.2) g/dL Albumin 3.2 L (3.5-5.0) g/dL - Imaging CT scan - abdomen: image reviewed (aortic occlusion focal with collateralization due to chronic nature) Assessment and Plan Assessment: 1. Chronic focal abdominal aortic occlusion 2. Lower extremity claudication Ladonna classification 3 3. Pancreatic abdominal mass with lytic lesions rule out malignancy 4. Anemia of chronic disease 5. Tobacco abuse 6. Weight loss Plan: No vascular surgical intervention at this time. Recommend aspirin, statin if able to take. Will follow as outpatient after workup for intraabdominal issues. Thank you for allowing me to participate in your patients care.
[2019-07-01 11:12] LABS: Folate, Serum 5.7 ng/mL
--- NOTE | 2019-07-01 11:17 | NM ---
EXAMINATION TYPE: NM bone scan whole body DATE OF EXAM: 07/01/2019 COMPARISON: NONE HISTORY: Metastatic lung cancer Delayed whole-body scanning was performed following the injection of 23.7 mCi Tc 99m MDP. Images acq uired 3 hours post injection. FINDINGS: There is increased uptake in the ribs bilaterally. On the right this is linear and may be p osttraumatic. On the left this is more irregular. I could not exclude metastases. There is also diffu se increased uptake about about the left shoulder. The right shoulder appears deformed or remodeled. There is no other peripheral activity. IMPRESSION: 1. I COULD NOT EXCLUDE METASTATIC DISEASE TO THE LEFT RIBS. 2. RIGHT RIB ACTIVITY IS BELIEVED TO BE MORE LIKELY POSTTRAUMATIC. 3. ABNORMAL ACTIVITY IN BOTH SHOULDERS.
[2019-07-01 11:18] LABS: % Iron Saturation 11.96 (12.00-45.00); Ferritin 464.8 ng/mL (10.0-291.0); Iron 25 ug/dL (50-170); Total Iron Binding Capacity 209 ug/dL (228-460)
[2019-07-01 11:58] LABS: Glucose,Whole Blood 96 mg/dL (75-99)
--- NOTE | 2019-07-01 13:15 | MR ---
EXAMINATION TYPE: MR brain wo/w con DATE OF EXAM: 07/01/2019 12:57 PM COMPARISON: NONE HISTORY: Pleural mass, eval for metastatic cancer TECHNIQUE: Multiplanar, multiecho imaging of the brain was obtained with and without intravenous adm inistration of 5 mL intravenous Gadavist. FINDINGS: This study is compromised by patient motion artifact. There are generalized changes of sulcal prominence and ventriculomegaly suggestive of atrophic change . There is some atrophy of the corpus callosum. Midline structures are otherwise unremarkable. There is a normal craniocervical junction. Echoplanar diffusion imaging is normal. There are normal vascular flow voids. The orbits are unremarkable. There is no evidence of a CP angle mass lesion. There are scattered high signal lesions in the FLAIR dataset. These are likely on the basis small ves carter disease. There is no acute focal lesion, mass effect or midline shift identified. I do not see ev idence of intracranial blood. The postcontrast images are very much affected by motion. I do not see evidence of abnormal enhancement. IMPRESSION: 1. SUBOPTIMAL EXAMINATION SHOWING NO CONVINCING EVIDENCE OF METASTASES. 2. ATROPHIC CHANGE. 3. SCATTERED FLAIR LESIONS, LIKELY ON THE BASIS OF SMALL VESSEL DISEASE.
--- NOTE | 2019-07-01 13:23 | P.PN ---
Subjective Progress Note Date: 07/01/19 Principal diagnosis: Known Squamous cell carcinoma, Early stage, likely second malignancy versus metastatic cancer After further review of patients history, even though she initially "forgot" she had cancer and received radiation treatments under the care of Dr. 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 01/17/2019 - Diagnostic imaging revealed SEEMA nodule with increased size and FDG as well as new pleural based nodules near superior segment of left lower lobe. It is unclear what happeed after this time in regards to follow-up. Per patients sister she has been falling a lot at home, weak, not eating, and confused intermittently. She said this has been getting worse over the past couple months. Objective - Vital Signs Vital signs: Vital Signs Temp 98.6 F 07/01/19 05:10 Pulse 94 07/01/19 05:10 Resp 22 07/01/19 05:10 BP 107/64 07/01/19 05:10 Pulse Ox 97 07/01/19 05:10 Intake & Output 06/30/19 07/01/19 07/01/19 18:59 06:59 18:59 Intake Total 1190 Balance 1190 Weight 52.163 kg 52.163 kg Intake: Intake, IV Titration 900 Amount Sodium Chloride 0.9% 1, 900 000 ml @ 100 mls/hr IV . Q10H [facility] Rx#:[id number] Oral 290 Other: Voiding Method Toilet Toilet Diaper Incontinent # Voids 1 - Exam Telemed, alert, needs redirection and re-focus. - Labs CBC & Chem 7: 07/01/19 05:55 07/01/19 05:55 Labs: Abnormal Lab Results - Last 24 Hours (Table) 06/30/19 06/30/19 06/30/19 Range/Units 12:37 19:59 Unknown RBC (3.80-5.40) m/uL Hgb (11.4-16.0) gm/dL Hct (34.0-46.0) % Sodium 135 L (137-145) mmol/L Glucose 106 H (74-99) mg/dL POC Glucose (mg/dL) 143 H (75-99) mg/dL Iron (50-170) ug/dL TIBC (228-460) ug/dL % Saturation (12.00-45.00) Ferritin (10.0-291.0) ng/mL Total Protein 6.2 L (6.3-8.2) g/dL Albumin 3.2 L (3.5-5.0) g/dL Ur Leukocyte Esterase Moderate H (Negative) Ur Squamous Epith Cells 8 H (0-4) /hpf Urine Bacteria Rare H (None) /hpf Urine Mucus Few H (None) /hpf 07/01/19 07/01/19 07/01/19 Range/Units 05:55 05:55 07:14 RBC 3.16 L (3.80-5.40) m/uL Hgb 9.7 L (11.4-16.0) gm/dL Hct 30.1 L (34.0-46.0) % Sodium (137-145) mmol/L Glucose 73 L (74-99) mg/dL POC Glucose (mg/dL) 113 H (75-99) mg/dL Iron 25 L (50-170) ug/dL TIBC 209 L (228-460) ug/dL % Saturation 11.96 L (12.00-45.00) Ferritin 464.8 H (10.0-291.0) ng/mL Total Protein (6.3-8.2) g/dL Albumin (3.5-5.0) g/dL Ur Leukocyte Esterase (Negative) Ur Squamous Epith Cells (0-4) /hpf Urine Bacteria (None) /hpf Urine Mucus (None) /hpf Microbiology - Last 24 Hours (Table) 06/30/19 Unknown Urine Culture - Preliminary Urine,Voided Assessment and Plan Plan: Assessment and Recommendations: HX: Early Stage Squamous Cell Carcinoma SEEMA: - Status post stereotactiv radiation at [facility] in 05/2018 - Recurrence, pleural nodules in December 2018, unclear as to follow-up Mental Status Changes, forgetful and falls: - MRI brain pending Pleural Masses: - Suspicious for malignancy - likely metastatic Abnormality near Pancreatic Duct: - MR is ordered - GI on consult to evaluate - If further suspicion of pancreatic malignancy will need tissue biopsy Normocytic Anemia: - Work-up placed Aortic Occlusion: - Per Vascular Overall picture is highly suspicious for metastatic malignant process, probable from original early stage lung cancer diagnosed last year : Due to the current epidemic with COVID 19, patient did verbally consent to telemed visit. discussion with patient, son, review of labs, medications, and pertinent orders placed. Greater than 22 minutes spent during telemedicine visit. er Zehra will be called per patients request.
[2019-07-01] MEDS: FOLIC ACID 1 MG TAB PO SCH (14:55)
[2019-07-01 17:14] LABS: Glucose,Whole Blood 119 mg/dL (75-99)
--- NOTE | 2019-07-01 17:59 | PN ---
PROGRESS NOTE DATE OF SERVICE: 07/01/2019 This 74-year-old woman was admitted with left lower quadrant abdominal pain also was thought to have lung malignancy. Even the patient is unable to remember. The patient apparently might have received some radiation. Evaluation showed possible multiple pleural METS and as well as iliac METS also. MRI of the brain did not show any abnormality. Multiple consultants are following the patient closely. Efforts are also on the way to obtain old records. Dr. Mtz has seen the patient from the vascular point of view and thought to have chronic aortic atherosclerotic disease. No acute interventions needed. Surgery, Dr. Mercer has seen the patient. PAST MEDICAL HISTORY: Reviewed. REVIEW OF SYSTEMS: CARDIOVASCULAR SYSTEM: No angina or palpitations. RESPIRATION: As mentioned earlier. GI: As mentioned earlier. : No dysuria. CURRENT MEDICATIONS: Reviewed and include: 1. Tylenol 650 q.6h p.r.n. 2. [place] 5 mg. 3. Albuterol nebulizers. 4. Folic acid. 5. Heparin. 6. Toradol. 7. Synthroid. 8. Morphine. 9. Narcan. 10.Habitrol. 11.Zofran. 12.Protonix. 13.Senokot. 14.Restoril. PHYSICAL EXAM: Patient is alert, oriented x3. Pulse is 92. Blood pressure 83/50, respirations 16, temperature 98.9, pulse ox 94% on room air. HEENT: Conjunctivae normal. NECK: No JVD. CARDIOVASCULAR: S1, S2 muffled. RESPIRATORY: Breath sounds diminished in the bases. Scattered rhonchi and crackles. ABDOMEN: Soft, nontender. LEGS are no edema. No swelling. CENTRAL NERVOUS SYSTEM: No focal deficits. LABORATORY DATA: WBC 7.3, hemoglobin 9.7. Otherwise, saturation 11.9, ferritin is 464.8. ASSESSMENT: 1. Left lower quadrant abdominal pain with possible lytic lesions in the right iliac bone at L4 spinous process possibly metastatic malignancy. 2. Possible lung cancer with METS on previous treatment. 3. Multiple pleural METS. 4. Focal abdominal aortic occlusion with reconstitution of bilateral femoral arteries, possibly aortic otherwise close rather chronic. 5. Hyponatremia. 6. Anemia, normocytic anemia of chronic disease. 7. Possible dementia. 8. Significant weight loss. 9. History of asthma. 10.Hypothyroidism. 11.History of ongoing nicotine dependence. 12.Anemia, normocytic anemia of chronic disease. 13.FULL CODE. 14.Mild protein calorie malnutrition. RECOMMENDATIONS AND DISCUSSION: This 74-year-old woman who presented with multiple complex medical issues, at this time, I recommend to continue current medications, management and symptomatic treatment. Otherwise, at this time, I would recommend pain medications. Bone scan noted. Closely follow with multiple consultants. Guarded prognosis because of multiple complex medical issues. Further recommendations to follow. MMODL / IJN: [id number] / FATIMAH
[2019-07-01] MEDS: ALBUTEROL NEBULIZED 2.5 MG/3 ML INHALATION SCH (19:24)
[2019-07-01] MEDS: ATORVASTATIN 80 MG TAB PO SCH (20:30)
[2019-07-01 20:41] LABS: Glucose,Whole Blood 114 mg/dL (75-99)
--- NOTE | 2019-07-01 22:08 | P.CONS ---
History of Present Illness - Reason for Consult Consult date: 07/01/19 Dilated PD Requesting physician: Ramiro Pruett - Chief Complaint Abdominal pain - History of Present Illness 74-year-old female with a medical history significant for hypothyroidism, dyslipidemia, asthma and suspected history of lung cancer status post radiation therapy who presented to the hospital due to abdominal pain. She reports abdominal pain which has been constant and achy. Umbilical region of her abdomen. The abdominal pain has been present for the past few weeks. Worse in the left lower quadrant. She will have episodes of sharp pain. She denies any exacerbating or alleviating factors. Overall the patient is a poor historian and not able to provide very much information. She denies any blood per rectum or dark tarry stools. She does feel as though she has been increasingly constipated over the last little while. She reports at baseline she would have bowel movements every 2-3 days and with the aid of a laxative but that this has worsened recently. She denies any nausea or vomiting. She does report some associated decreased oral intake. The patient had a computed tomography scan of the abdomen performed in evaluation with concerning along findings likely related to her stated history of lung cancer, diverticulosis, as well as dilation of the main pancreatic duct and common bile duct. Liver enzymes however remain normal with total bilirubin 0.3, alkaline phosphatase 89, AST 19 and ALT 10. Tumor markers performed in evaluation have been normal including CA 125 at 17 and CA-19-9 that 9.2. The patient had iron studies suggestive of an iron deficiency anemia with a hemoglobin of 9.7. On questioning the patient is unsure of her last endoscopic evaluation but believes colonoscopy was over 5 years. Review of Systems REVIEW OF SYSTEMS: CONSTITUTIONAL: Denies any fevers, chills, weight change or fatigue. CARDIOVASCULAR: Denies any chest pain, palpitations high or low blood pressures RESPIRATORY: Denies any shortness of breath, hemoptysis or cough. GENITOURINARY: No dysuria or hematuria. MUSCULOSKELETAL: No weakness reported. SKIN: Denies any new rashes or lesions, jaundice or pallor. PSYCHIATRIC: Denies any depression or anxiety. NEUROLOGY: Denies headache, denies any new focal deficits, but does have problems with memory. EARS/NOSE/THROAT: No recent hearing change, congestion, nasal discharge or sore throat. EYES: No pain in eyes, discharge or change in vision. GASTROINTESTINAL: As per HPI. Past Medical History Past Medical History: Asthma, Thyroid Disorder Additional Past Medical History / Comment(s): left torn rotator cuff, spot on lung that is cancerous see dr barroso, radiation treatments for lung last guess is december, forgetful per son History of Any Multi-Drug Resistant Organisms: None Reported Past Surgical History: No Surgical Hx Reported Past Anesthesia/Blood Transfusion Reactions: No Reported Reaction Past Psychological History: No Psychological Hx Reported Smoking Status: Current every day smoker Past Alcohol Use History: None Reported Additional Past Alcohol Use History / Comment(s): 6 beers a week if that Past Drug Use History: None Reported - Past Family History Mother Family Medical History: Cancer Additional Family Medical History / Comment(s): breast cancer Father Family Medical History: Chest Pain / Angina, Congestive Heart Failure (CHF) Brother(s) Family Medical History: Cancer Additional Family Medical History / Comment(s): cancer everywhere Medications and Allergies Home Medications Medication Instructions Recorded Confirmed Type Acetaminophen Tab [Tylenol Tab] 1,000 mg PO BID 06/30/19 06/30/19 History Atorvastatin [Lipitor] 80 mg PO HS 06/30/19 06/30/19 History Levothyroxine Sodium 137 mcg PO DAILY 06/30/19 06/30/19 History Allergies Allergy/AdvReac Type Severity Reaction Status Date / Time varenicline [From Chantix] Allergy Anaphylaxis Verified 06/30/19 15:52 Physical Exam Vitals: Vital Signs Temp Pulse Pulse Resp BP BP Pulse Ox 07/01/19 05:10 98.6 F 94 22 107/64 97 06/30/19 21:18 95 06/30/19 20:30 98.3 F 81 16 96/54 94 L 06/30/19 17:36 97.8 F 92 16 121/71 95 06/30/19 16:50 98.6 F 81 16 100/71 97 06/30/19 14:00 89 18 132/80 96 06/30/19 12:17 97.7 F 97 18 107/70 97 Intake and Output 06/30/19 07/01/19 07/01/19 22:59 06:59 14:59 Intake Total 290 900 Balance 290 900 Intake: Intake, IV Titration 900 Amount Sodium Chloride 0.9% 1, 900 000 ml @ 100 mls/hr IV . Q10H [facility] Rx#:[id number] Oral 290 Other: Voiding Method Toilet Toilet Diaper Incontinent # Voids 1 1 Weight 52.163 kg 52.163 kg On physical examination, patient appears comfortable in no apparent distress. HEAD: Normocephalic, atraumatic. EYES: No scleral icterus. No conjunctival injection. MOUTH: No lesions, tongue midline. NECK: Trachea midline, no gross abnormalities. CHEST: Clear to auscultation with no wheezing or rhonchi appreciated. HEART: Regular rate and rhythm. ABDOMEN: Soft, mildly tender to palpation. Bowel sounds are positive. No organomegaly. No guarding or rigidity. EXTREMITIES: No pedal edema. SKIN: No rashes, no jaundice. NEUROLOGIC: Alert and oriented. No focal deficits. Results CBC & Chem 7: 07/01/19 05:55 07/01/19 05:55 Labs: Abnormal Lab Results - Last 24 Hours (Table) 06/30/19 06/30/19 06/30/19 Range/Units 12:37 12:37 19:59 RBC 3.57 L (3.80-5.40) m/uL Hgb 10.8 L (11.4-16.0) gm/dL Hct 33.5 L (34.0-46.0) % Sodium 135 L (137-145) mmol/L Glucose 106 H (74-99) mg/dL POC Glucose (mg/dL) 143 H (75-99) mg/dL Iron (50-170) ug/dL TIBC (228-460) ug/dL % Saturation (12.00-45.00) Ferritin (10.0-291.0) ng/mL Total Protein 6.2 L (6.3-8.2) g/dL Albumin 3.2 L (3.5-5.0) g/dL Ur Leukocyte Esterase (Negative) Ur Squamous Epith Cells (0-4) /hpf Urine Bacteria (None) /hpf Urine Mucus (None) /hpf 06/30/19 07/01/19 07/01/19 Range/Units Unknown 05:55 05:55 RBC 3.16 L (3.80-5.40) m/uL Hgb 9.7 L (11.4-16.0) gm/dL Hct 30.1 L (34.0-46.0) % Sodium (137-145) mmol/L Glucose 73 L (74-99) mg/dL POC Glucose (mg/dL) (75-99) mg/dL Iron 25 L (50-170) ug/dL TIBC 209 L (228-460) ug/dL % Saturation 11.96 L (12.00-45.00) Ferritin 464.8 H (10.0-291.0) ng/mL Total Protein (6.3-8.2) g/dL Albumin (3.5-5.0) g/dL Ur Leukocyte Esterase Moderate H (Negative) Ur Squamous Epith Cells 8 H (0-4) /hpf Urine Bacteria Rare H (None) /hpf Urine Mucus Few H (None) /hpf 07/01/19 Range/Units 07:14 RBC (3.80-5.40) m/uL Hgb (11.4-16.0) gm/dL Hct (34.0-46.0) % Sodium (137-145) mmol/L Glucose (74-99) mg/dL POC Glucose (mg/dL) 113 H (75-99) mg/dL Iron (50-170) ug/dL TIBC (228-460) ug/dL % Saturation (12.00-45.00) Ferritin (10.0-291.0) ng/mL Total Protein (6.3-8.2) g/dL Albumin (3.5-5.0) g/dL Ur Leukocyte Esterase (Negative) Ur Squamous Epith Cells (0-4) /hpf Urine Bacteria (None) /hpf Urine Mucus (None) /hpf Microbiology - Last 24 Hours (Table) 06/30/19 Unknown Urine Culture - Preliminary Urine,Voided CT scan - abdomen: report reviewed (CT findings of CBD and pancreatic duct dilation) Assessment and Plan (1) Abnormal computed tomography of abdomen and pelvis Narrative/Plan: 74-year-old female with multiple medical comorbidities who presented with abdominal pain. She associated this with increasing constipation. She reports at baseline bowel movements every few days usually with the use of [id number]-[id number] laxatives. This is worsened over the past few weeks. She reports diffuse abdominal pain described as achy with some sharp left lower quadrant abdominal pain. Computed tomography scan performed in evaluation with multiple findings including abdominal aortic thrombus likely chronic in nature, pulmonary findings as well as dilation of the pancreatic duct and common bile duct. Liver enzymes normal making obstruction unlikely. Tumor markers including CA-125 and CA 19-9 also normal. Questionable history of lung cancer treated with radiation therapy. Unclear etiology of findings but we'll plan for further investigation with MRI scan of the abdomen. Current Visit: Yes Status: Acute Code(s): R93.5 - ABN FINDINGS ON DX IMAGING OF ABD REGIONS, INC RETROPERITON SNOMED Code(s): 593177092 (2) Left sided abdominal pain Current Visit: Yes Status: Acute Code(s): R10.9 - UNSPECIFIED ABDOMINAL PAIN SNOMED Code(s): 021979153 (3) Iron deficiency anemia Narrative/Plan: Denies any signs or symptoms of GI bleeding and reports last colonoscopy appr oximately 5 years ago. Current Visit: Yes Status: Acute Code(s): D50.9 - IRON DEFICIENCY ANEMIA, UNSPECIFIED SNOMED Code(s): 56142468 Plan: Supportive care Okay for diet Continue to monitor CBC, BMP, LFTs CEA ordered An MRI of the abdomen with and without contrast ordered for further evaluation of pancreas and biliary system No plans for endoscopic evaluation at this time Bowel regimen with MiraLAX daily added Thank you for allowing us to participate in the care of the patient we will continue to follow
[2019-07-02] MEDS ORDERED: ALBUTEROL NEBULIZED 2.5 MG/3 ML INHALATION PRN (03:13)
[2019-07-02] MEDS: HYDROcodone/APAP 5-325MG 1 EACH TAB PO PRN ×2 (04:18→13:25)
[2019-07-02] MEDS: SODIUM CHLORIDE 0.9% 1,000 ML IV SCH ×2 (04:20→22:17)
[2019-07-02] MEDS: LEVOTHYROXINE 137 MCG TAB PO SCH (05:46)
[2019-07-02 06:59] LABS: Glucose,Whole Blood 153 mg/dL (75-99)
[2019-07-02] MEDS: ALBUTEROL NEBULIZED 2.5 MG/3 ML INHALATION SCH ×3 (07:33→19:30)
[2019-07-02] MEDS: POLYETHYLENE GLYCOL 3350 17 GM POWD.PACK PO SCH (09:15)
[2019-07-02] MEDS: PANTOPRAZOLE 40 MG/10 ML VIAL IV SCH (09:15)
[2019-07-02] MEDS: HEPARIN SODIUM,PORCINE 5,000 UNIT/ML 1 ML VIAL SQ SCH ×2 (09:15→20:06)
[2019-07-02] MEDS: NICOTINE 14MG/24HR PATCH TRANSDERM SCH (09:16)
[2019-07-02] MEDS: SENNOSIDES-DOCUSATE SODIUM 1 EACH TAB PO SCH ×2 (09:16→20:07)
[2019-07-02] MEDS: FOLIC ACID 1 MG TAB PO SCH (09:16)
[2019-07-02] MEDS ORDERED: MAGNESIUM CITRATE 296 ML BOTTLE PO ONE (10:00)
[2019-07-02 11:26] LABS: Glucose,Whole Blood 144 mg/dL (75-99)
[2019-07-02] MEDS: MORPHINE SULFATE 4 MG/ML SYRINGE IV PRN (16:01)
[2019-07-02 17:06] LABS: Glucose,Whole Blood 157 mg/dL (75-99)
[2019-07-02] MEDS ORDERED: ALPRAZolam 0.25 MG TAB PO PRN (17:24)
--- NOTE | 2019-07-02 17:41 | P.PN ---
Subjective Progress Note Date: 07/02/19 Principal diagnosis: Known Squamous cell carcinoma, Early stage, likely second malignancy versus metastatic cancer Reviewed MRI and stable, No signs of metastatic disease. Spoke to patient and sister Zehra. Objective - Vital Signs Vital signs: Vital Signs Temp 98.2 F 07/02/19 11:52 Pulse 87 07/02/19 16:00 Resp 17 07/02/19 16:00 BP 101/64 07/02/19 11:52 Pulse Ox 96 07/02/19 11:52 Intake & Output 07/01/19 07/02/19 07/02/19 18:59 06:59 18:59 Intake Total 600 1800 240 Balance 600 1800 240 Weight 52.163 kg Intake: Intake, IV Titration 600 900 Amount Sodium Chloride 0.9% 1, 600 900 000 ml @ 75 mls/hr IV . [id number] [facility] Rx#:[id number] Oral 900 240 Other: Voiding Method Toilet Toilet Toilet Diaper Diaper Diaper Incontinent Incontinent Incontinent # Voids 1 3 - Exam Telemed, alert, needs redirection and re-focus. - Labs CBC & Chem 7: 07/01/19 05:55 07/01/19 05:55 Labs: Abnormal Lab Results - Last 24 Hours (Table) 07/01/19 07/02/19 07/02/19 Range/Units 20:29 06:57 11:24 POC Glucose (mg/dL) 114 H 153 H 144 H (75-99) mg/dL 07/02/19 Range/Units 17:05 POC Glucose (mg/dL) 157 H (75-99) mg/dL Microbiology - Last 24 Hours (Table) 06/30/19 Unknown Urine Culture - Final Urine,Voided Assessment and Plan Plan: Assessment and Recommendations: HX: Early Stage Squamous Cell Carcinoma SEEMA: - Status post stereotactiv radiation at [facility] in 05/2018 - Recurrence, pleural nodules in December 2018, unclear as to follow-up Mental Status Changes, forgetful and falls: - MRI brain completed, negative Pleural Masses: - Suspicious for malignancy - likely metastatic Abnormality near Pancreatic Duct: - MR is ordered - GI on consult to evaluate - If further suspicion of pancreatic malignancy will need tissue biopsy - Awaiting MRI to be done Normocytic Anemia: - Work-up placed Aortic Occlusion: - Per Vascular Overall picture is highly suspicious for metastatic malignant process, probable from original early stage lung cancer diagnosed last year : Discussed with Sister per patients request - Re-biopsy with NGS and PDL1 testing on new specimen with likely metastatic Squamous Cell Due to the current epidemic with COVID 19, patient did verbally consent to tele med visit. discussion with patient, Sister Zehra, review of labs, medications, and pertinent orders placed. Greater than 22 minutes spent during telemedicine visit. er Zehra will be called per patients request.
--- NOTE | 2019-07-02 18:56 | P.PN ---
Subjective Progress Note Date: 07/02/19 Principal diagnosis: Abnormal computed tomography scan abdomen and pelvis, abdominal pain, constipation Patient is seen lying in bed reporting she tolerated diet. Her abdominal pain improved. Still reporting constipation. Objective - Vital Signs Vital signs: Vital Signs Temp 99.1 F 07/02/19 05:45 Pulse 87 07/02/19 08:20 Resp 20 07/02/19 08:20 BP 119/67 07/02/19 05:45 Pulse Ox 98 07/02/19 05:45 Intake & Output 07/01/19 07/02/19 07/02/19 18:59 06:59 18:59 Intake Total 600 1800 Balance 600 1800 Weight 52.163 kg Intake: Intake, IV Titration 600 900 Amount Sodium Chloride 0.9% 1, 600 900 000 ml @ 75 mls/hr IV . [id number] [facility] Rx#:[id number] Oral 900 Other: Voiding Method Toilet Toilet Toilet Diaper Diaper Diaper Incontinent Incontinent Incontinent # Voids 1 - Exam On physical examination, patient appears comfortable in no apparent distress. HEAD: Normocephalic, atraumatic. EYES: No scleral icterus. No conjunctival injection. MOUTH: No lesions, tongue midline. NECK: Trachea midline, no gross abnormalities. ABDOMEN: Soft, nontender to palpation. Bowel sounds are positive. No organomegaly. No guarding or rigidity. EXTREMITIES: No pedal edema. SKIN: No rashes, no jaundice. NEUROLOGIC: Alert and oriented. - Labs CBC & Chem 7: 07/01/19 05:55 07/01/19 05:55 Labs: Abnormal Lab Results - Last 24 Hours (Table) 07/01/19 07/01/19 07/01/19 Range/Units 05:55 17:13 20:29 POC Glucose (mg/dL) 119 H 114 H (75-99) mg/dL Iron 25 L (50-170) ug/dL TIBC 209 L (228-460) ug/dL % Saturation 11.96 L (12.00-45.00) Ferritin 464.8 H (10.0-291.0) ng/mL 07/02/19 Range/Units 06:57 POC Glucose (mg/dL) 153 H (75-99) mg/dL Iron (50-170) ug/dL TIBC (228-460) ug/dL % Saturation (12.00-45.00) Ferritin (10.0-291.0) ng/mL Microbiology - Last 24 Hours (Table) 06/30/19 Unknown Urine Culture - Final Urine,Voided Assessment and Plan (1) Abnormal computed tomography of abdomen and pelvis Narrative/Plan: 74-year-old female with multiple medical comorbidities who presented with abdominal pain. She associated this with increasing constipation. She reports at baseline bowel movements every few days usually with the use of icqv-cow-fpmu ter laxatives. This is worsened over the past few weeks. She reports diffuse abdominal pain described as achy with some sharp left lower quadrant abdominal pain. Computed tomography scan performed in evaluation with multiple findings including abdominal aortic thrombus likely chronic in nature, pulmonary findings as well as dilation of the pancreatic duct and common bile duct. Liver enzymes normal making obstruction unlikely. Tumor markers including CA-125 and CA 19-9 also normal. Questionable history of lung cancer treated with radiation therapy. Unclear etiology of findings but we'll plan for further investigation with MRI scan of the abdomen. Current Visit: Yes Status: Acute Code(s): R93.5 - ABN FINDINGS ON DX IMAGING OF ABD REGIONS, INC RETROPERITON SNOMED Code(s): 074751179 (2) Left sided abdominal pain Current Visit: Yes Status: Acute Code(s): R10.9 - UNSPECIFIED ABDOMINAL PAIN SNOMED Code(s): 299732317 (3) Iron deficiency anemia Narrative/Plan: Denies any signs or symptoms of GI bleeding and reports last colonoscopy approximately 5 years ago. Current Visit: Yes Status: Acute Code(s): D50.9 - IRON DEFICIENCY ANEMIA, UNSPECIFIED SNOMED Code(s): 11915354 Plan: Supportive care Okay for diet Continue to monitor CBC, BMP, LFTs CEA ordered An MRI of the abdomen with and without contrast ordered for further evaluation of pancreas and biliary system and pending Magnesium citrate given today No plans for endoscopic evaluation at this time Bowel regimen with MiraLAX daily added Thank you for allowing us to participate in the care of the patient we will continue to follow
[2019-07-02] MEDS: ATORVASTATIN 80 MG TAB PO SCH (20:06)
--- NOTE | 2019-07-02 20:29 | PN ---
PROGRESS NOTE DATE OF SERVICE: 07/02/2019 This 74-year-old woman was admitted with significant left lower quadrant abdominal pain also had thought to have leg malignancy. Patient received treatment from elsewhere. Reports are not available at this time. Brain MRI has also been done which showed no significant evidence of any metastatic disease, but the bone scan is highly suspicious, multiple consultants are following the patient closely. Patient being closely monitored. PAST MEDICAL HISTORY: Reviewed. REVIEW OF SYSTEMS: CARDIOVASCULAR system: No angina or palpitations. RESPIRATORY: As mentioned earlier. GASTROINTESTINAL: As mentioned earlier. no dysuria. NERVOUS SYSTEM: No numbness or weakness. CURRENT MEDICATIONS: Reviewed and include: 1. Tylenol p.r.n. 2. [place] 5 mg q.6h p.r.n. 3. Ventolin 2.5 t.i.d. 4. Lipitor 80 mg daily. 5. Folic acid 1 mg daily. 6. Heparin. 7. Toradol 30 mg IV q.6h. 8. Synthroid. 9. Narcan 0.2 q.2 p.r.n. 10.Habitrol 14 daily. 11.Zofran. 12.Protonix. 13.MiraLAX. 14.Senokot-S. 15.Restoril. 16.Doses reviewed. PHYSICAL EXAM: Patient is alert and oriented x2. Pulse 95. Blood pressure 101/64. Respirations 17. Temperature 98.2, pulse ox 98% on room air. HEENT: Oral mucosa moist. NECK is no jugular venous distention. No carotid bruit. No lymph node enlargement. CARDIOVASCULAR systems: S1, S2. RESPIRATORY: Breath sounds diminished in the bases. A few scattered rhonchi. No crackles. ABDOMEN: Soft. Mild diffuse distention present. Mild diffuse tenderness. No guarding. No rigidity. No mass palpable. LEGS are no edema. No swelling. CENTRAL NERVOUS SYSTEM: No focal deficits. LABORATORY DATA: WBC 7.9, hemoglobin 9.5. Sodium 130. Potassium 4.3 and ferritin is 464.8. CA99 is 9.2, and CA125 is also within normal limits. ASSESSMENT: 1. Left lower quadrant abdominal pain with possible lytic lesions in the right iliac fossa and L4 spinous process possibly metastatic malignancy, rule out bowel obstruction. 2. Possible lung cancer with METS on previous treatment. 3. Multiple pleural METS. 4. Focal abdominal aortic occlusion with reconstitution of bilateral femoral arteries, possibly aortic atherosclerosis, rather chronic. 5. Hyponatremia. 6. Anemia, normocytic anemia of chronic disease. 7. Possible dementia. 8. Significant weight loss. 9. History of asthma. 10.Hypothyroidism. 11.History of ongoing nicotine dependence. 12.Anemia, normocytic anemia of chronic disease. 13.Mild protein calorie malnutrition. 14.FULL CODE. RECOMMENDATIONS AND DISCUSSION: I recommend to continue current medications, management and symptomatic treatment. Otherwise, at this time, I recommend continue with symptomatic treatment. We will await old records. Otherwise, closely follow with multiple consultants. Pain medications. DVT prophylaxis. Proton pump inhibitors. Guarded prognosis. Further recommendations to follow. MMODL / IJN: [id number] /
[2019-07-02 20:40] LABS: Glucose,Whole Blood 137 mg/dL (75-99)
[2019-07-03] MEDS: HYDROcodone/APAP 5-325MG 1 EACH TAB PO PRN ×2 (05:16→19:54)
[2019-07-03] MEDS: SODIUM CHLORIDE 0.9% 1,000 ML IV SCH ×2 (05:37→20:45)
[2019-07-03] MEDS: LEVOTHYROXINE 137 MCG TAB PO SCH (05:41)
[2019-07-03 06:45] LABS: Glucose,Whole Blood 102 mg/dL (75-99)
[2019-07-03] MEDS: ALBUTEROL NEBULIZED 2.5 MG/3 ML INHALATION SCH ×3 (07:55→20:14)
[2019-07-03] MEDS: HEPARIN SODIUM,PORCINE 5,000 UNIT/ML 1 ML VIAL SQ SCH ×2 (08:22→20:44)
[2019-07-03] MEDS: PANTOPRAZOLE 40 MG TABLET PO SCH (08:34)
[2019-07-03] MEDS: FOLIC ACID 1 MG TAB PO SCH (08:35)
[2019-07-03] MEDS: SENNOSIDES-DOCUSATE SODIUM 1 EACH TAB PO SCH ×2 (08:41→20:44)
[2019-07-03] MEDS: NICOTINE 14MG/24HR PATCH TRANSDERM SCH (08:41)
[2019-07-03] MEDS: POLYETHYLENE GLYCOL 3350 17 GM POWD.PACK PO SCH (09:19)
[2019-07-03] MEDS ORDERED: NA PHOS,M-B/NA PHOS,DI-BA 133 ML ENEMA RECTAL ONE (10:15)
--- NOTE | 2019-07-03 10:36 | P.PN ---
Subjective Progress Note Date: 07/03/19 Principal diagnosis: Abdominal pain In follow-up today patient has complaints of lower abdominal pain, persistent, she is not very interested in answering any further questions, she is asking for food, no nausea or vomiting. Objective - Vital Signs Vital signs: Vital Signs Temp 98 F 07/03/19 04:44 Pulse 88 07/03/19 08:05 Resp 18 07/03/19 04:44 BP 116/67 07/03/19 04:44 Pulse Ox 94 L 07/03/19 04:44 Intake & Output 07/02/19 07/03/19 07/03/19 18:59 06:59 18:59 Intake Total 240 Balance 240 Intake: Oral 240 Other: Voiding Method Toilet Toilet Toilet Diaper Diaper Diaper Incontinent Incontinent Incontinent # Voids 3 8 1 - Constitutional General appearance: Present: average body habitus, no acute distress - EENT Eyes: Present: anicteric sclerae, EOMI ENT: Present: hearing grossly normal - Respiratory Respiratory: bilateral: diminished - Cardiovascular Heart sounds: normal: S1, S2 - Peripheral edema leg Peripheral Edema: bilateral: None - Gastrointestinal General gastrointestinal: Present: normal bowel sounds, soft, tenderness - Neurologic Neurologic: Present: CNII-XII intact - Musculoskeletal Musculoskeletal: Present: strength equal bilaterally - Psychiatric Psychiatric Comment(s): Patient relays knowing her cancer history when directly questioned about it, she is not understanding that she is currently being worked up for a suspicious area by her pancreas and pleural nodules. Psychiatric: Present: A&O x's 3. Absent: appropriate affect (Angry) - Labs CBC & Chem 7: 07/01/19 05:55 07/01/19 05:55 Labs: Abnormal Lab Results - Last 24 Hours (Table) 07/02/19 07/02/19 07/02/19 Range/Units 11:24 17:05 20:39 POC Glucose (mg/dL) 144 H 157 H 137 H (75-99) mg/dL 07/03/19 Range/Units 06:43 POC Glucose (mg/dL) 102 H (75-99) mg/dL - Imaging and Cardiology MRI - head: report reviewed Assessment and Plan (1) Abnormal computed tomography of abdomen and pelvis Narrative/Plan: Patient has been seen by Gastroenterology. Pending MRI of the liver. Based on MRI findings and Gastroenterology's recommendations, either ERCP with biopsy or proceed with Interventional Radiology pleural nodule biopsy. Current Visit: Yes Status: Acute Priority: High Code(s): R93.5 - ABN FINDINGS ON DX IMAGING OF ABD REGIONS, INC RETROPERITON SNOMED Code(s): 790509838 (2) Pleural mass Narrative/Plan: May have to consider pleural-based biopsy. Current Visit: Yes Status: Acute Priority: High Code(s): J94.8 - OTHER SPECIFIED PLEURAL CONDITIONS SNOMED Code(s): 478404201 (3) Squamous cell lung cancer Narrative/Plan: Patient is completed treatment for the same. Pending records for [facility] to document history of treatment. Current Visit: Yes Status: Acute Priority: High Code(s): C34.90 - MALIGNANT NEOPLASM OF UNSP PART OF UNSP BRONCHUS OR LUNG SNOMED Code(s): 268863842 Plan: Discussed suspicious findings of the bones. I will contact patient's sister to review the case. Patient did give me the okay to do this. Again, I don't think patient is understanding everything is going on.
--- NOTE | 2019-07-03 10:52 | PN ---
PROGRESS NOTE DATE OF DICTATION: 07/03/2019 The patient is a 74-year-old pleasant white female admitted to the hospital with lower abdominal pain and severe constipation. Oncology is following her because of squamous cell lung cancer diagnosed in May of 2018 with possible metastasis. She was seen by Dr. Rush in consultation 2 days ago for a dilated pancreatic duct noted on abdominal CAT scan performed at the time of admission the hospital with a questionable ampullary mass. Tumor markers with CA 19-9 and CEA were within normal limits. The patient is scheduled to have an MRI of the abdomen today. In the meantime, she still continues to complain of severe constipation. Her last bowel movement was about 4 days ago. She remains on MiraLAX one scoop daily with no results. PHYSICAL EXAMINATION: On physical examination, she appears comfortable, no apparent distress. Vital signs are stable. Blood pressure is 116/66, pulse rate 89, temperature 98. HEENT EXAMINATION: Unremarkable. Conjunctivae pink. Sclerae anicteric. Oral cavity, no lesions. NECK: No JVD or lymph node enlargement. CHEST: Clear to auscultation. HEART: Regular rate and rhythm. ABDOMEN: Soft, it was nontender, nondistended. There was mild discomfort in the suprapubic area, right lower quadrant area and left lower quadrant area, but no rebound or rigidity. EXTREMITIES: No pedal edema. SKIN: No rashes. NEURO: She is alert and oriented x3. No focal deficits. LABS: Labs from yesterday: Her ferritin is 464 and and iron saturation is 11%. Hemoglobin was 9.7. IMPRESSION: 1. Low left lower quadrant abdominal pain with severe constipation. The patient remains on MiraLAX one scoop a day with no significant relief in her symptoms. 2. Dilated pancreatic duct with questionable lesion in ampulla for which MRI of the abdomen was ordered, which is still pending. 3. History of squamous cell lung cancer diagnosed in May of 2018, status post radiation therapy now with multiple abnormalities noted on recent CT of the abdomen and pelvis with questionable lytic lesions in the right iliac crest and pleural masses suspicious for metastasis. Oncology following the patient closely. RECOMMENDATIONS: 1. Await MRI of the abdomen results, which is scheduled for today. 2. Increase MiraLAX to one scoop twice daily. 3. Will give her Fleet enema to relieve the constipation x1 dose today. 4. Continue with symptomatic and supportive care. 5. We will follow with you closely. Thank you for this consultation. MMJONGL / IJN: [id number] /
[2019-07-03] MEDS: MORPHINE SULFATE 4 MG/ML SYRINGE IV PRN (11:06)
[2019-07-03 12:03] LABS: Glucose,Whole Blood 131 mg/dL (75-99)
--- NOTE | 2019-07-03 12:16 | MR ---
EXAMINATION TYPE: MR pancreas / mrcp wo/w con DATE OF EXAM: 07/03/2019 COMPARISON: CT dated 06/30/2019 HISTORY: Pancreatic duct dilation, abn CT CONTRAST: Standard multiplanar, multisequence MRI departmental protocol utilizing 5.5 mL intravenous Gadavist g adolinium contrast. FINDINGS: Focal pleural-based masses identified left lung. There is also atelectasis or additional mass at the right lung base. Small effusions are noted. Correlate with CT chest. 5 mm cystic lesion posterior segment right hepatic lobe. No additional hepatic lesions seen. Mild int rahepatic biliary ductal prominence. Gallbladder is stented at 8.1 cm in greatest dimension. No wall thickening or filling defect identifi ed. The bile duct dilated at 8.6 mm. Tapering of the common bile duct at the ampulla. Underlying lesi on is not excluded versus stricture. Pancreatic duct is prominent at 5 mm. No pancreatic lesions identified. Spleen and adrenal glands are within normal limits. Kidneys are free of mass or hydronephrosis. As no jw on CT distal abdominal aorta is occluded. IMPRESSION: 1. Underlying gallbladder hydrops with bile duct dilatation and dilatation of the pancreatic duct. Co mmon bile duct is tapered at the level of the ampulla and underlying lesion is not excluded versus st ricture. Consider ERCP.
--- NOTE | 2019-07-03 15:13 | P.PN ---
Subjective Progress Note Date: 07/03/19 Principal diagnosis: 07/03/2019 This is a 74-year-old female who was recently admitted with significant left lower quadrant abdominal pain is being closely monitored. Patient continues to have abdominal discomfort and currently awaiting an MRI of the pancreas at this time. Patient states her abdominal discomfort has not improved since yesterday. Patient states she has had nothing to eat and is very hungry. Patient is agitated and would like food at this time. A diet order has been placed. Patient is also stating she is having some constipation and would like something for that. Multiple medical consultations following. Afebrile. No reports of chest pain. Patient has been receiving treatment elsewhere and currently awaiting reports. Review of systems: Constitutional: Reports agitation, reports some fatigue, denies fever Cardiovascular: No reports of chest pain or palpitations Respiratory: No reports of shortness of breath or cough GI: Reports mild left lower abdominal discomfort, no reports of nausea, vomiting, or diarrhea, reports some constipation : No reports of dysuria or retention Nervous: No reports of weakness or dizziness Active Medications Acetaminophen (Tylenol Tab) 650 mg PO Q6HR PRN PRN Reason: Mild Pain or Fever > 100.5 Hydrocodone Bitart/Acetaminophen (Adams 5-325) 1 each PO Q6HR PRN PRN Reason: Pain Last Admin: 07/03/19 05:16 Dose: 1 each Documented by: Albuterol Sulfate (Ventolin Nebulized) 2.5 mg INHALATION RT-TID [facility] Last Admin: 07/03/19 07:55 Dose: 2.5 mg Documented by: Albuterol Sulfate (Ventolin Nebulized) 2.5 mg INHALATION RT-Q4H PRN PRN Reason: Shortness Of Breath Or Wheezing Last Admin: 07/03/19 01:35 Dose: 2.5 mg Documented by: Alprazolam (Xanax) 0.25 mg PO HS PRN PRN Reason: Anxiety Atorvastatin Calcium (Lipitor) 80 mg PO HS [facility] Last Admin: 07/02/19 20:06 Dose: 80 mg Documented by: Folic Acid (Folic Acid) 1 mg PO DAILY [facility] Last Admin: 07/03/19 08:35 Dose: Not Given Documented by: Heparin Sodium (Porcine) (Heparin) 5,000 unit SQ Q12HR [facility] Last Admin: 07/03/19 08:22 Dose: Not Given Documented by: Sodium Chloride (Saline 0.9%) 1,000 mls @ 75 mls/hr IV .[id number] [facility] Last Admin: 07/03/19 05:37 Dose: 75 mls/hr Documented by: Ketorolac Tromethamine (Toradol) 30 mg IVP Q6HR PRN PRN Reason: Moderate Pain Stop: 07/05/19 15:31 Levothyroxine Sodium (Synthroid) 137 mcg PO DAILY@0630 [facility] Last Admin: 07/03/19 05:41 Dose: 137 mcg Documented by: Morphine Sulfate (Morphine Sulfate (Inj)) 4 mg IV Q4HR PRN PRN Reason: Severe Pain Last Admin: 07/03/19 11:06 Dose: 4 mg Documented by: Naloxone HCl (Narcan) 0.2 mg IV Q2M PRN PRN Reason: Opioid Reversal Nicotine (Habitrol 14mg/24hr Patch) 1 patch TRANSDERM DAILY [facility] Last Admin: 07/03/19 08:41 Dose: 1 patch Documented by: Ondansetron HCl (Zofran) 4 mg IVP Q8HR PRN PRN Reason: Nausea And Vomiting Pantoprazole Sodium (Protonix) 40 mg PO AC-BRKFST [facility] Last Admin: 07/03/19 08:34 Dose: Not Given Documented by: Polyethylene Glycol (Miralax) 17 gm PO DAILY [facility] Last Admin: 07/03/19 09:19 Dose: Not Given Documented by: Senna/Docusate Sodium (Senokot-S) 2 each PO BID [facility] Last Admin: 07/03/19 08:41 Dose: 2 each Documented by: Temazepam (Restoril) 15 mg PO HS PRN PRN Reason: Insomnia Objective - Vital Signs Vital signs: Vital Signs Temp 98.5 F 07/03/19 11:55 Pulse 91 07/03/19 11:55 Resp 18 07/03/19 11:55 BP 133/68 07/03/19 11:55 Pulse Ox 97 07/03/19 11:55 Intake & Output 07/02/19 07/03/19 07/03/19 18:59 06:59 18:59 Intake Total 240 Balance 240 Intake: Oral 240 Other: Voiding Method Toilet Toilet Toilet Diaper Diaper Diaper Incontinent Incontinent Incontinent # Voids 3 8 1 - Exam Gen: This is a 74-year-old female sitting up at the side of the bed awake, alert and oriented 3. Agitated. Temp is 98.5F, pulse is 91, respirations are 18, blood pressure is 133/68, oxygen saturation is 97% on room air. HEENT: Head is atraumatic, normocephalic. Pupils equal, round. Sclerae is anicteric. NECK: Supple. No JVD. No lymphadenopathy. No thyromegaly. LUNGS: Breath sounds diminished at the bases with a few scattered rhonchi noted. No wheezing noted on exam. No intercostal retractions. HEART: S1, S2 are muffled ABDOMEN: Soft. Bowel sounds are present. No masses. Mild tenderness noted on palpation. EXTREMITIES: No pedal edema. No calf tenderness. NEUROLOGICAL: Patient is awake, alert and oriented x3. Cranial nerves 2 through 12 are grossly intact. 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 MiraLAX and Senokot ordered as needed. Awaiting MRI report. GI and oncology are following. Due to multiple complex medical issues, prognosis is guarded. Further recommendations to follow. Will repeat a.m. labs. Will continue to monitor closely.
[2019-07-03 20:10] LABS: Glucose,Whole Blood 102 mg/dL (75-99)
[2019-07-03] MEDS: ATORVASTATIN 80 MG TAB PO SCH (20:43)
[2019-07-04] MEDS: LEVOTHYROXINE 137 MCG TAB PO SCH (06:14)
[2019-07-04 06:34] LABS: Basophils % (A) 0 %; Eosinophils # (A) 0.3 k/uL (0-0.7); Eosinophils % (A) 3 %; HCT 29.3 % (34.0-46.0); HGB 9.4 gm/dL (11.4-16.0); Lymphocytes # (A) 1.3 k/uL (1.0-4.8); Lymphocytes % (A) 15 %; MCH 30.2 pg (25.0-35.0); MCHC 32.3 g/dL (31.0-37.0); MCV 93.8 fL (80.0-100.0); Mean Platelet Volume 7.9; Monocytes # (A) 0.7 k/uL (0-1.0); Monocytes % (A) 8 %; Neutrophils # (A) 6.2 k/uL (1.3-7.7); Neutrophils % (A) 73 %; Platelet Count 359 k/uL (150-450); RBC 3.12 m/uL (3.80-5.40); RDW 14.4 % (11.5-15.5); WBC 8.5 k/uL (3.8-10.6)
[2019-07-04 06:51] LABS: African American GFR (CKD) >90 (>60 ml/min/1.73 sqM); Anion Gap 5 mmol/L; Blood Urea Nitrogen 8 mg/dL (7-17); Calcium 8.7 mg/dL (8.4-10.2); Carbon Dioxide 27 mmol/L (22-30); Chloride 104 mmol/L (98-107); Glucose 80 mg/dL (74-99); Non-African American GFR(CKD) >90 (>60 ml/min/1.73 sqM); Potassium 4.4 mmol/L (3.5-5.1); Sodium 136 mmol/L (137-145)
[2019-07-04 07:08] LABS: Glucose,Whole Blood 86 mg/dL (75-99)
[2019-07-04] MEDS: PANTOPRAZOLE 40 MG TABLET PO SCH (07:09)
[2019-07-04] MEDS: FOLIC ACID 1 MG TAB PO SCH (07:09)
[2019-07-04] MEDS: HEPARIN SODIUM,PORCINE 5,000 UNIT/ML 1 ML VIAL SQ SCH ×2 (07:09→20:28)
[2019-07-04] MEDS: SENNOSIDES-DOCUSATE SODIUM 1 EACH TAB PO SCH ×2 (07:09→20:25)
[2019-07-04] MEDS: POLYETHYLENE GLYCOL 3350 17 GM POWD.PACK PO SCH ×2 (07:09→20:29)
[2019-07-04] MEDS: NICOTINE 14MG/24HR PATCH TRANSDERM SCH (07:09)
[2019-07-04] MEDS: HYDROcodone/APAP 5-325MG 1 EACH TAB PO PRN ×2 (07:10→14:55)
[2019-07-04] MEDS: ALBUTEROL NEBULIZED 2.5 MG/3 ML INHALATION SCH ×3 (08:35→17:26)
[2019-07-04 11:46] LABS: Glucose,Whole Blood 163 mg/dL (75-99)
--- NOTE | 2019-07-04 12:22 | P.CONS ---
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 Martinez in 06/2018. she subsequently was found to have progressive disease within the primary lesion, and had developed a suspicious pleural-based nodule. She underwent repeat radiosurgery in January 2019. She was subsequently lost to follow-up. The patient now was presented to the emergency room at [facility] secondary to abdominal pain. She reports an approximate 2 week history of ongoing left lateral abdominal pain which is worse with bending over. While in the emergency room a CT scan of the abdomen and pelvis revealed some dilation of the pancreatic duct and common bile duct. However, multiple pleural-based lung masses were seen on the CT, as well as a lytic lesion within L4 and the right iliac bone. She subsequently underwent a CT scan of the chest which revealed extensive left pleural based lesions with several areas of rib erosion. There was also nodules appreciated in the lingula and left upper lung. The patient reports she has had difficulty passing her bowels recently. She does not recall for how long she has been constipated. Review of Systems Constitutional: Denies chills, Denies fever Eyes: denies blurred vision Ears: deny: decreased hearing Ears, nose, mouth and throat: Denies headache Cardiovascular: Denies chest pain Respiratory: Reports dyspnea, Denies cough, Denies hemoptysis Gastrointestinal: Reports abdominal pain, Reports constipation, Denies nausea, Denies vomiting Musculoskeletal: Denies frequent falls Integumentary: Denies rash Neurological: Denies aphasia, Denies change in mentation, Denies headaches, Denies weakness Past Medical History Past Medical History: Asthma, Thyroid Disorder Additional Past Medical History / Comment(s): left torn rotator cuff, spot on lung that is cancerous see dr barroso, radiation treatments for lung last guess is december, forgetful per son History of Any Multi-Drug Resistant Organisms: None Reported Past Surgical History: No Surgical Hx Reported Past Anesthesia/Blood Transfusion Reactions: No Reported Reaction Past Psychological History: No Psychological Hx Reported Smoking Status: Current every day smoker Past Alcohol Use History: None Reported Additional Past Alcohol Use History / Comment(s): 6 beers a week if that Past Drug Use History: None Reported - Past Family History Mother Family Medical History: Cancer Additional Family Medical History / Comment(s): breast cancer Father Family Medical History: Chest Pain / Angina, Congestive Heart Failure (CHF) Brother(s) Family Medical History: Cancer Additional Family Medical History / Comment(s): cancer everywhere Medications and Allergies Home Medications Medication Instructions Recorded Confirmed Type Acetaminophen Tab [Tylenol Tab] 1,000 mg PO BID 06/30/19 06/30/19 History Atorvastatin [Lipitor] 80 mg PO HS 06/30/19 06/30/19 History Levothyroxine Sodium 137 mcg PO DAILY 06/30/19 06/30/19 History Allergies Allergy/AdvReac Type Severity Reaction Status Date / Time varenicline [From Chantix] Allergy Anaphylaxis Verified 06/30/19 15:52 Physical Exam Vitals: Vital Signs Temp Pulse Pulse Resp BP Pulse Ox 07/04/19 08:46 84 07/04/19 08:35 80 07/04/19 04:53 98.6 F 79 16 129/81 98 07/03/19 20:31 88 07/03/19 20:14 84 07/03/19 20:10 98.4 F 92 18 135/79 97 Intake and Output 07/03/19 07/04/19 07/04/19 22:59 06:59 14:59 Intake Total 300 600 Balance 300 600 Intake: Intake, IV Titration 300 600 Amount Sodium Chloride 0.9% 1, 300 600 000 ml @ 75 mls/hr IV . [id number] [facility] Rx#:[id number] Other: Voiding Method Toilet Diaper # Voids 1 Weight 52.163 kg - Constitutional General appearance: no acute distress - EENT Eyes: EOMI, PERRLA ENT: hearing grossly normal - Neck Neck: no lymphadenopathy - Respiratory Respiratory: bilateral: CTA - Cardiovascular Rhythm: regular - Gastrointestinal General gastrointestinal: no distended, tenderness (Left mid-lower lateral abdomen), no umbilical hernia - Integumentary Integumentary: no calor - Musculoskeletal Musculoskeletal: strength equal bilaterally - Psychiatric Psychiatric: A&O x's 3, appropriate affect Results CBC & Chem 7: 07/04/19 05:51 07/04/19 05:51 Labs: Abnormal Lab Results - Last 24 Hours (Table) 07/03/19 07/04/19 07/04/19 Range/Units 20:09 05:51 05:51 RBC 3.12 L (3.80-5.40) m/uL Hgb 9.4 L (11.4-16.0) gm/dL Hct 29.3 L (34.0-46.0) % Sodium 136 L (137-145) mmol/L POC Glucose (mg/dL) 102 H (75-99) mg/dL 07/04/19 Range/Units 11:38 RBC (3.80-5.40) m/uL Hgb (11.4-16.0) gm/dL Hct (34.0-46.0) % Sodium (137-145) mmol/L POC Glucose (mg/dL) 163 H (75-99) mg/dL CT scan - abdomen: report reviewed, image reviewed CT scan - chest: report reviewed, image reviewed CT Scan - head: report reviewed, image reviewed CT scan - pelvis: report reviewed, image reviewed MRI - head: report reviewed, image reviewed Assessment and Plan Plan: The patient is a 74-year-old female with a history of a 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 Martinez in 06/2018 at [facility]. She subsequently was found to have progressive disease within the primary lesion, and had developed a suspicious pleural-based nodule. She underwent repeat radiosurgery in January 2019. She was subsequently lost to follow-up. 1. Recurrent likely squamous cell lung cancer: Clinically, the patient has suspicion of recurrent squamous cell carcinoma. Before she was lost to follow- up, the patient did have a CT scan showing some increased pleural nodularity. I discussed with the patient that this is worrisome for disease recurrence. We'll discuss further medical oncology, but the patient will likely need next generation testing of the tumor. I explained to the patient this is incurable d isease. 2. Abdominal pain: Uncertain exact etiology. This could be partially due to her underlying constipation. There is some concern for possible periampullary mass, but I feel it is less likely this patient has a second malignancy in this area. Normal LFTs. 3. T-12 paraspinal lesion: On the patient's CT imaging, she was found to have a paraspinal mass extending from T11 to approximately L1 on the left side. There is evidence of neural-foraminal involvement. This may potentially explain some of the patient's left-sided abdominal pain. She also describes some pain radiating under the left breast. I discussed with the patient that she should undergo a palliative course of radiotherapy to this, to prevent neurologic compromise. I will call the patient's son to discuss this case in more detail with him. Time with Patient: Greater than 30
--- NOTE | 2019-07-04 13:44 | P.PN ---
Subjective Progress Note Date: 07/04/19 Principal diagnosis: 07/03/2019 This is a 74-year-old female who was recently admitted with significant left lower quadrant abdominal pain is being closely monitored. Patient continues to have abdominal discomfort and currently awaiting an MRI of the pancreas at this time. Patient states her abdominal discomfort has not improved since yesterday. Patient states she has had nothing to eat and is very hungry. Patient is agitated and would like food at this time. A diet order has been placed. Patient is also stating she is having some constipation and would like something for that. Multiple medical consultations following. Afebrile. No reports of chest pain. Patient has been receiving treatment elsewhere and currently awaiting reports. Review of systems: Constitutional: Reports agitation, reports some fatigue, denies fever Cardiovascular: No reports of chest pain or palpitations Respiratory: No reports of shortness of breath or cough GI: Reports mild left lower abdominal discomfort, no reports of nausea, vomiting, or diarrhea, reports some constipation : No reports of dysuria or retention Nervous: No reports of weakness or dizziness 07/04/2019 Patient is seen and evaluated in follow-up today and continues to have significant discomfort of the left lower quadrant lateral region and continues to state she is passing minimal gas and is having no bowel movements. Patient received an enema yesterday and had small amounts of stool with the enema but n othing since. MiraLAX and Senokot ordered. Multiple medical consultations following. Patient underwent an MRI of the pancreas showing bile duct dilatation and dilatation of the pancreatic duct, common bile duct is tapered at the level of the ampulla an underlying lesion is not excluded versus stricture and will likely need ERCP. GI is following. Oncology also following. Patient was receiving treatment at [facility] in 2019 but was lost to follow-up. Currently no reports of chest pain, shortness of breath, or palpitations. Patient is afebrile. No reports of nausea or vomiting and patient is tolerating diet. Patient states she has been up and walking to the bathroom and back with no difficulties continues to have extreme discomfort of the left lateral side. Review of systems: Cardiovascular: No reports of chest pain or palpitations Respiratory: No reports of shortness of breath or cough GI: Continued left lower quadrant lateral discomfort, no reports of nausea, vomiting, or diarrhea, reports continued constipation and abdominal fullness : No reports of dysuria or retention Nervous system: No reports of weakness or numbness Active Medications Acetaminophen (Tylenol Tab) 650 mg PO Q6HR PRN PRN Reason: Mild Pain or Fever > 100.5 Hydrocodone Bitart/Acetaminophen (Laporte 5-325) 1 each PO Q6HR PRN PRN Reason: Pain Last Admin: 07/04/19 07:10 Dose: 1 each Documented by: Albuterol Sulfate (Ventolin Nebulized) 2.5 mg INHALATION RT-TID [facility] Last Admin: 07/04/19 11:48 Dose: Not Given Documented by: Albuterol Sulfate (Ventolin Nebulized) 2.5 mg INHALATION RT-Q4H PRN PRN Reason: Shortness Of Breath Or Wheezing Last Admin: 07/03/19 01:35 Dose: 2.5 mg Documented by: Alprazolam (Xanax) 0.25 mg PO HS PRN PRN Reason: Anxiety Atorvastatin Calcium (Lipitor) 80 mg PO HS [facility] Last Admin: 07/03/19 20:43 Dose: 80 mg Documented by: Folic Acid (Folic Acid) 1 mg PO DAILY [facility] Last Admin: 07/04/19 07:09 Dose: 1 mg Documented by: Heparin Sodium (Porcine) (Heparin) 5,000 unit SQ Q12HR [facility] Last Admin: 07/04/19 07:09 Dose: 5,000 unit Documented by: Sodium Chloride (Saline 0.9%) 1,000 mls @ 75 mls/hr IV .[id number] [facility] Last Admin: 07/03/19 20:45 Dose: 75 mls/hr Documented by: Ketorolac Tromethamine (Toradol) 30 mg IVP Q6HR PRN PRN Reason: Moderate Pain Stop: 07/05/19 15:31 Levothyroxine Sodium (Synthroid) 137 mcg PO DAILY@0630 [facility] Last Admin: 07/04/19 06:14 Dose: 137 mcg Documented by: Morphine Sulfate (Morphine Sulfate (Inj)) 4 mg IV Q4HR PRN PRN Reason: Severe Pain Last Admin: 07/03/19 11:06 Dose: 4 mg Documented by: Naloxone HCl (Narcan) 0.2 mg IV Q2M PRN PRN Reason: Opioid Reversal Nicotine (Habitrol 14mg/24hr Patch) 1 patch TRANSDERM DAILY [facility] Last Admin: 07/04/19 07:09 Dose: 1 patch Documented by: Ondansetron HCl (Zofran) 4 mg IVP Q8HR PRN PRN Reason: Nausea And Vomiting Pantoprazole Sodium (Protonix) 40 mg PO AC-BRKFST [facility] Last Admin: 07/04/19 07:09 Dose: 40 mg Documented by: Polyethylene Glycol (Miralax) 17 gm PO BID [facility] Senna/Docusate Sodium (Senokot-S) 2 each PO BID [facility] Last Admin: 07/04/19 07:09 Dose: 2 each Documented by: Temazepam (Restoril) 15 mg PO HS PRN PRN Reason: Insomnia Last Admin: 07/03/19 23:09 Dose: 15 mg Documented by: Objective - Vital Signs Vital signs: Vital Signs Temp 98.6 F 07/04/19 04:53 Pulse 84 07/04/19 08:46 Resp 16 07/04/19 04:53 BP 129/81 07/04/19 04:53 Pulse Ox 98 07/04/19 04:53 Intake & Output 07/03/19 07/04/19 07/04/19 18:59 06:59 18:59 Intake Total 800 900 Balance 800 900 Weight 52.163 kg Intake: Intake, IV Titration 600 900 Amount Sodium Chloride 0.9% 1, 600 900 000 ml @ 75 mls/hr IV . [id number] [facility] Rx#:[id number] Oral 200 Other: Voiding Method Toilet Toilet Diaper Diaper Incontinent # Voids 3 1 - Exam Gen: This is a 74-year-old female sitting up at the side of the bed awake, alert and oriented 3. Agitated. Temp is 98.1F, pulse is 89, respirations are 16, blood pressure is 96/59, oxygen saturation is 96% on room air. HEENT: Head is atraumatic, normocephalic. Pupils equal, round. Sclerae is anicteric. NECK: Supple. No JVD. No lymphadenopathy. No thyromegaly. LUNGS: Breath sounds diminished at the bases with a few scattered rhonchi noted. No wheezing noted on exam. No intercostal retractions. HEART: S1, S2 are muffled ABDOMEN: Soft. Bowel sounds are present. No masses. Mild tenderness noted on palpation of the left lower quadrant lateral side. EXTREMITIES: No pedal edema. No calf tenderness. NEUROLOGICAL: Patient is awake, alert and oriented x3. Cranial nerves 2 through 12 are grossly intact. - Labs CBC & Chem 7: 07/04/19 05:51 07/04/19 05:51 Labs: Abnormal Lab Results - Last 24 Hours (Table) 07/03/19 07/03/19 07/04/19 Range/Units 11:57 20:09 05:51 RBC 3.12 L (3.80-5.40) m/uL Hgb 9.4 L (11.4-16.0) gm/dL Hct 29.3 L (34.0-46.0) % Sodium (137-145) mmol/L POC Glucose (mg/dL) 131 H 102 H (75-99) mg/dL 07/04/19 Range/Units 05:51 RBC (3.80-5.40) m/uL Hgb (11.4-16.0) gm/dL Hct (34.0-46.0) % Sodium 136 L (137-145) mmol/L POC Glucose (mg/dL) (75-99) mg/dL Assessment and Plan Assessment: Left lower quadrant abdominal pain with possible lytic lesions in the right iliac fossa and L4 spinous process possibly metastatic malignancy, rule out bowel obstruction Possible lung cancer with metastases on previous treatment 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 MRI report reviewed recommending possible ERCP. Oncology is following and also recommending possible pleural mass biopsy. GI and oncology are following. Due to multiple complex medical issues, prognosis is guarded. Further recommendations to follow. Will continue to monitor closely.
--- NOTE | 2019-07-04 15:28 | P.PN ---
Subjective Progress Note Date: 07/04/19 Principal diagnosis: Abdominal pain In follow-up today patient has complaints of lower abdominal pain, persistent, no other physical c/o, denies fever, QAMAR, diarrhea or constipation. She sometimes seems to understand her situation and plan but, then she will ask questions that would be consistent with her not understanding. Objective - Vital Signs Vital signs: Vital Signs Temp 98.1 F 07/04/19 12:33 Pulse 89 07/04/19 12:33 Resp 16 07/04/19 12:33 BP 96/59 07/04/19 12:33 Pulse Ox 96 07/04/19 12:33 Intake & Output 07/03/19 07/04/19 07/04/19 18:59 06:59 18:59 Intake Total 800 900 120 Balance 800 900 120 Weight 52.163 kg Intake: Intake, IV Titration 600 900 Amount Sodium Chloride 0.9% 1, 600 900 000 ml @ 75 mls/hr IV . [id number] [facility] Rx#:[id number] Oral 200 120 Other: Voiding Method Toilet Toilet Diaper Diaper Incontinent # Voids 3 1 - Constitutional General appearance: Present: average body habitus, cooperative, no acute distress - EENT Eyes: Present: anicteric sclerae, EOMI ENT: Present: hearing grossly normal - Respiratory Respiratory: bilateral: CTA, diminished - Cardiovascular Heart sounds: normal: S1, S2 - Peripheral edema leg Peripheral Edema: bilateral: None - Gastrointestinal Localized gastrointestinal: tender: epigastric periumbilical - Neurologic Neurologic: Present: CNII-XII intact - Musculoskeletal Musculoskeletal: Present: strength equal bilaterally - Psychiatric Psychiatric: Present: A&O x's 3, appropriate affect - Labs CBC & Chem 7: 07/04/19 05:51 07/04/19 05:51 Labs: Abnormal Lab Results - Last 24 Hours (Table) 07/03/19 07/04/19 07/04/19 Range/Units 20:09 05:51 05:51 RBC 3.12 L (3.80-5.40) m/uL Hgb 9.4 L (11.4-16.0) gm/dL Hct 29.3 L (34.0-46.0) % Sodium 136 L (137-145) mmol/L POC Glucose (mg/dL) 102 H (75-99) mg/dL 07/04/19 Range/Units 11:38 RBC (3.80-5.40) m/uL Hgb (11.4-16.0) gm/dL Hct (34.0-46.0) % Sodium (137-145) mmol/L POC Glucose (mg/dL) 163 H (75-99) mg/dL - Imaging and Cardiology MRI - abdomen: report reviewed Assessment and Plan (1) Abnormal computed tomography of abdomen and pelvis Narrative/Plan: MRI of the liver done, lesion vs stricture noted of CBD, pending Gastroenterology's recommendations Current Visit: Yes Status: Acute Priority: High Code(s): R93.5 - ABN FINDINGS ON DX IMAGING OF ABD REGIONS, INC RETROPERITON SNOMED Code(s): 834742619 (2) Pleural mass Narrative/Plan: Now recommendation is for biopsy. May defer to [facility]-checking with sister to see what is more convenient Current Visit: Yes Status: Acute Priority: High Code(s): J94.8 - OTHER SPECIFIED PLEURAL CONDITIONS SNOMED Code(s): 539976094 (3) Squamous cell lung cancer Narrative/Plan: Patient was diagnosed with stage IA lung cancer, she had a CT-guided biopsy of a 1.5 cm left upper lobe nodule May 2018, poorly differentiated squamous cell carcinoma. Patient had no mediastinal or distant disease on PET scan. She was not felt to be a surgical candidate based on her PFTs. She received radiation treatment for the same-this was delayed as she was lost to f/u several times. She received radiation from 01/30/19 through 02/06/19. Last CT of the chest is dated March 06, 2019. Spiculated pulmonary nodule in the left upper lobe documented as minimally decreased in size in the interval (last scan was January 16, 2019). Measured 1.6 x 1.5 cm. Previously measured 1.8 x 1.6 cm. Multiple subpleural pulmonary nodular densities throughout the left lung increased in size. No enlarged axillary or mediastinal lymph nodes. Patient had not followed up with Rad Onc as schedule. The last note is dated 02/06/2019. Recommendation is for patient to follow up and follow through with [facility] as this is closer to her home. I will confirm this with her sister. Current Visit: Yes Status: Acute Priority: High Code(s): C34.90 - MALIGNANT NEOPLASM OF UNSP PART OF UNSP BRONCHUS OR LUNG SNOMED Code(s): 060536550 Plan: Doctor attests: I performed a history and physical examination of this patient, developed impression and plan of care, discussed with dictator. I agree with dictators note, documented as a scribe.
--- NOTE | 2019-07-04 16:56 | PN ---
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 During this hospitalization, she was noted that she had a CT of the abdomen and pelvis done that showed some dilation of the pancreatic duct as well as multiple pleural based nodule for which Oncology and Radiation Oncology were consulted. She underwent an MRCP yesterday that showed a slightly dilated pancreatic duct as well as dilation of the common bile duct with no evidence of pancreatic mass noted. There was a tapering of the distal common bile duct at the level of ampulla and possibility of underlying neoplasm could not be excluded and hence was recommended. In the meantime, patient is doing much better. She remains on MiraLAX 1 scoop twice daily and was given a Fleet enema. Her constipation has improved. PHYSICAL EXAMINATION: She appears comfortable, in no apparent distress. VITAL SIGNS: Stable. Blood pressure is 96/59, pulse rate 89, temperature 98.1. HEENT: Examination unremarkable, conjunctivae are pink, sclerae nonicteric, oral cavity no lesions. NECK: No JVD or lymph node enlargement. CHEST: Clear to auscultation. HEART: Regular rate and rhythm. ABDOMEN: Soft. There was mild tenderness in the left lower quadrant area. The rest of the abdomen was benign. Bowel sounds are positive. No organomegaly. EXTREMITIES: No pedal edema. SKIN: No rashes. NEURO: She is alert and oriented x3. No focal deficits. LABS: LFTs are within normal limits. IMPRESSION: 1. History of squamous cell lung cancer, diagnosed in June of 2018, status post radiation therapy an June as well as in January of 2019. 2. Abdominal pain, probably related to constipation, which is improving. 3. Abnormal MRCP showing dilated common bile duct and pancreatic duct with questionable periampullary lesion, but; however, her serum transaminases and LFTs are within normal limits. Clinically, no evidence of biliary obstruction, cannot rule out pancreatic or biliary pathology. 4. Paraspinal mass noted on CT of the spine, Radiation Oncology was consulted and Dr. Carlos has evaluated the patient. 5. Multiple pleural nodules for which Oncology is following the patient. RECOMMENDATION: I had a lengthy discussion with the patient as well as with Dr. Pruett today. At this time, she will be scheduled for a pleural biopsy to see for any metastasis and based on that, will decide if the patient will need an ERCP in the near future. The plan was discussed with the patient. She is agreeable to it. At this time, will continue to watch her closely. Thank you for this consultation. ETTA / JOSHUA: [id number] /
[2019-07-04 17:17] LABS: Glucose,Whole Blood 117 mg/dL (75-99)
[2019-07-04] MEDS: SODIUM CHLORIDE 0.9% 1,000 ML IV SCH ×2 (17:23→20:29)
[2019-07-04 20:09] LABS: Glucose,Whole Blood 130 mg/dL (75-99)
[2019-07-04] MEDS: ATORVASTATIN 80 MG TAB PO SCH (20:28)
[2019-07-05] MEDS: HYDROcodone/APAP 5-325MG 1 EACH TAB PO PRN (00:47)
[2019-07-05] MEDS: NICOTINE 14MG/24HR PATCH TRANSDERM SCH (05:55)
[2019-07-05] MEDS: ALBUTEROL NEBULIZED 2.5 MG/3 ML INHALATION SCH ×2 (06:11→13:30)
[2019-07-05 07:01] LABS: Glucose,Whole Blood 105 mg/dL (75-99)
[2019-07-05] MEDS: PANTOPRAZOLE 40 MG TABLET PO SCH (08:01)
[2019-07-05] MEDS: FOLIC ACID 1 MG TAB PO SCH (08:01)
[2019-07-05] MEDS: SENNOSIDES-DOCUSATE SODIUM 1 EACH TAB PO SCH (08:01)
[2019-07-05] MEDS: HEPARIN SODIUM,PORCINE 5,000 UNIT/ML 1 ML VIAL SQ SCH (08:01)
[2019-07-05] MEDS: LEVOTHYROXINE 137 MCG TAB PO SCH (08:01)
[2019-07-05] MEDS: POLYETHYLENE GLYCOL 3350 17 GM POWD.PACK PO SCH (08:01)
[2019-07-05] MEDS ORDERED: NA PHOS,M-B/NA PHOS,DI-BA 133 ML ENEMA RECTAL ONE (10:37)
[2019-07-05] MEDS ORDERED: HYDROmorphone 0.5 MG/0.5 ML SYRINGE IVP STA (11:50)
[2019-07-05 12:28] LABS: Glucose,Whole Blood 103 mg/dL (75-99)
--- NOTE | 2019-07-05 12:33 | CT ---
EXAMINATION TYPE: CT biopsy subcut tissue DATE OF EXAM: 07/05/2019 COMPARISON: 06/30/2019 HISTORY: Request for left paraspinal pleural-based mass biopsy. CT DLP: 478.7 mGycm The procedure is discussed with the patient, the risks, complications, benefits and alternatives, wer e discussed and any questions were answered. Informed consent was obtained. The patient is placed p michael on the CT table, prepped and draped in the usual sterile fashion. Utilizing a 18-gauge core biopsy needle access into left pleural based mass was achieved with a singl e sample obtained. Pathology pending. All elements of maximal barrier and sterile technique were ut ilized. The patient remained stable throughout the procedure with no immediate postprocedural compli cation. IMPRESSION: 1. Successful CT guided core biopsy of a left-sided pleural-based lung mass.
--- NOTE | 2019-07-05 12:38 | XR ---
EXAMINATION TYPE: XR chest 1V portable DATE OF EXAM: 07/05/2019 HISTORY: Shortness of breath. COMPARISON: None. TECHNIQUE: Single view of the chest is submitted. FINDINGS: Demonstrated are scattered senescent parenchymal change. Scattered nodules and masses persist. No Definite infiltrate identified. The heart is stable. Hilar and mediastinal structures are within normal limits. Degenerative changes are seen of the dorsal spine. IMPRESSION: 1. Scattered nodules and masses persist. No Definite infiltrate identified.
[2019-07-05] MEDS: SODIUM CHLORIDE 0.9% 1,000 ML IV SCH (14:08)
[2019-07-05 14:36] VITALS: RESP 18; TEMP 98.2
[2019-07-05 14:37] VITALS: BP 118/67; PULSE 68
--- NOTE | 2019-07-05 15:04 | P.DS ---
Providers Date of admission: 06/30/19 16:24 Expected date of discharge: 07/05/19 Attending physician: Lilia Crowley Consults: 06/30/19 15:30 Consult Physician Stat Consulting Provider: Prieto Mtz Consult Reason/Comments: Chronic aortic occlusion Do you want consulting provider notified?: Yes Consult Physician Stat Consulting Provider: Ramiro Pruett Consult Reason/Comments: Pleural and pancreatic mass Do you want consulting provider notified?: Yes 06/30/19 16:05 Consult Physician Urgent Consulting Provider: Yemi Mercer Consult Reason/Comments: ab pain Do you want consulting provider notified?: Yes Consult Physician Urgent Consulting Provider: Doug Rush Consult Reason/Comments: ab pain Do you want consulting provider notified?: Yes 06/30/19 19:18 Consult Physician Routine Consulting Provider: Roldan Carlos Consult Reason/Comments: patient receoves radiation at [facility]? 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 Patient to continue with MiraLAX and Senokot as needed for constipation in the outpatient setting. Total time taken is 35 minutes. History of present illness This 74-year-old female who was recently admitted with significant left lower quadrant abdominal pain and was being closely monitored. Patient continues to have abdominal pain with some constipation and will be given MiraLAX and Senokot an enema before leaving. Patient was seen by multiple medical consultations including oncology although she normally follows up with [facility] oncology for treatments for lung cancer and has been lost to treatment. Patient has not been going to follow-up appointments. Patient was found to have new pulmonary nodules noted on CT and will undergo a pleural nodule biopsy prior to discharge. Patient will need to follow-up with oncology in the outpatient setting. This was discussed in detail with her family members as she seems to be forgetful and not fully understanding her treatment plan. Currently no reports of chest pain, shortness of breath, or palpitations. Patient is afebrile. No reports of nausea or vomiting and patient is tolerating diet. Patient will be discharged today. On exam vital signs are stable. Temp is 98.2F, pulse is 68, respirations are 18, blood pressure is 118/67, oxygen saturation is 96% on room air. Cardio S1, S2 are present. Respiratory system shows clear to auscultation. Abdomen is soft with some mild tenderness noted on the left side. Nervous system shows no focal deficits. Please refer to medication reconciliation sheet for a list of medications. Patient Condition at Discharge: Stable Plan - Discharge Summary Discharge Rx Participant: Yes New Discharge Prescriptions: New Folic Acid 1 mg PO DAILY 30 Days #30 tab Polyethylene Glycol 3350 [Miralax] 17 gm PO BID #30 powd.pack Pantoprazole [Protonix] 40 mg PO AC-BRKFST 30 Days #30 tablet.dr Barr-Docusate Sodium [Senokot-S] 2 each PO BID #30 tab Continue Acetaminophen Tab [Tylenol] 1,000 mg PO BID Levothyroxine Sodium 137 mcg PO DAILY Atorvastatin [Lipitor] 80 mg PO HS Discharge Medication List Acetaminophen Tab [Tylenol] 1,000 mg PO BID 06/30/19 [History] Atorvastatin [Lipitor] 80 mg PO HS 06/30/19 [History] Levothyroxine Sodium 137 mcg PO DAILY 06/30/19 [History] Folic Acid 1 mg PO DAILY 30 Days #30 tab 07/05/19 [Rx] Pantoprazole [Protonix] 40 mg PO AC-BRKFST 30 Days #30 tablet. 07/05/19 [Rx] Polyethylene Glycol 3350 [Miralax] 17 gm PO BID #30 powd.pack 07/05/19 [Rx] Sennosides-Docusate Sodium [Senokot-S] 2 each PO BID #30 tab 07/05/19 [Rx] Follow up Appointment(s)/Referral(s): Prieto Mtz DO [STAFF PHYSICIAN] - 4 Weeks Yousuf Wallace MD [Primary Care Provider] - 1-2 Days Activity/Diet/Wound Care/Special Instructions: Activity Limited until follow-up Follow-up with [facility] Continue with MiraLAX as needed and hold for loose stools Continue to avoid tobacco use Discharge Disposition: HOME SELF-CARE
--- NOTE | 2019-07-05 16:49 | P.PN ---
Subjective Progress Note Date: 07/05/19 Principal diagnosis: Abdominal pain In follow-up today patient has persistent complaints of lower abdominal pain, no other physical c/o. She is s/p pleural biopsy, no SOB, cough Objective - Vital Signs Vital signs: Vital Signs Temp 98.2 F 07/05/19 13:53 Pulse 68 07/05/19 13:53 Resp 18 07/05/19 13:53 BP 118/67 07/05/19 13:53 Pulse Ox 96 07/05/19 13:53 Intake & Output 07/04/19 07/05/19 07/05/19 18:59 06:59 18:59 Intake Total 840 820 290 Balance 840 820 290 Weight 52.163 kg Intake: Intake, IV Titration 600 700 Amount Sodium Chloride 0.9% 1, 600 700 000 ml @ 75 mls/hr IV . [id number] [facility] Rx#:[id number] Oral 240 120 290 Other: Voiding Method Toilet Toilet Diaper Diaper Incontinent Incontinent # Voids 2 2 2 - Constitutional General appearance: Present: average body habitus, mild distress - EENT Eyes: Present: anicteric sclerae, EOMI ENT: Present: hearing grossly normal - Respiratory Details: laying flat in bed, having conversation without QAMAR - Cardiovascular Heart sounds: normal: S1, S2 - Peripheral edema leg Peripheral Edema: bilateral: None - Gastrointestinal General gastrointestinal: Present: normal bowel sounds, soft, tenderness - Neurologic Neurologic: Present: CNII-XII intact - Musculoskeletal Musculoskeletal: Present: strength equal bilaterally - Psychiatric Psychiatric: Present: A&O x's 3, appropriate affect - Labs CBC & Chem 7: 07/04/19 05:51 07/04/19 05:51 Labs: Abnormal Lab Results - Last 24 Hours (Table) 07/04/19 07/04/19 07/05/19 Range/Units 17:14 20:08 06:59 POC Glucose (mg/dL) 117 H 130 H 105 H (75-99) mg/dL 07/05/19 Range/Units 12:25 POC Glucose (mg/dL) 103 H (75-99) mg/dL Assessment and Plan (1) Abnormal computed tomography of abdomen and pelvis Narrative/Plan: MRI of the liver done, lesion vs stricture noted of CBD. Possible ERCP and biopsy in future Current Visit: Yes Status: Acute Priority: High Code(s): R93.5 - ABN FINDINGS ON DX IMAGING OF ABD REGIONS, INC RETROPERITON SNOMED Code(s): 745421338 (2) Pleural mass Narrative/Plan: Consulted IR for pleural biopsy, it has been done, path pending. Current Visit: Yes Status: Acute Priority: High Code(s): J94.8 - OTHER SPECIFIED PLEURAL CONDITIONS SNOMED Code(s): 926926337 (3) Squamous cell lung cancer Narrative/Plan: Patient was diagnosed with stage IA lung cancer, she had a CT-guided biopsy of a 1.5 cm left upper lobe nodule May 2018, poorly differentiated squamous cell carcinoma. Patient had no mediastinal or distant disease on PET scan. She was not felt to be a surgical candidate based on her PFTs. She received radiation treatment for the same-this was delayed as she was lost to f/u several times. She received radiation from 01/30/19 through 02/06/19. Last CT of the chest is dated March 06, 2019. Spiculated pulmonary nodule in the left upper lobe documented as minimally decreased in size in the interval (last scan was January 16, 2019). Measured 1.6 x 1.5 cm. Previously measured 1.8 x 1.6 cm. Multiple subpleural pulmonary nodular densities throughout the left lung increased in size. No enlarged axillary or mediastinal lymph nodes. Patient had not followed up with Rad Onc as schedule. The last note is dated 02/06/2019. Recommendation is for patient to follow up and follow through with [facility] as this is closer to her home. Will send path there once available Current Visit: Yes Status: Acute Priority: High Code(s): C34.90 - MALIGNANT NEOPLASM OF UNSP PART OF UNSP BRONCHUS OR LUNG SNOMED Code(s): 363024872
--- NOTE | 2019-07-05 20:02 | PN ---
PROGRESS NOTE DATE OF DICTATION: 07/05/2019 This patient is a 74-year-old pleasant white female admitted to the hospital with abdominal pain and constipation. She is presently on MiraLAX twice daily and Fleet enemas as needed and is feeling a little bit better. She was seen by Oncology, who scheduled her for a pleural biopsy today. PHYSICAL EXAMINATION: She appears comfortable. Blood pressure is 119/67, pulse rate 68, temperature 98.2. HEENT examination unremarkable. Conjunctivae pink. Sclerae anicteric. Oral cavity no lesions. NECK: No JVD or lymph node enlargement. CHEST: Clear to auscultation. HEART: Regular rate and rhythm. ABDOMEN: Soft. Bowel sounds are positive. No organomegaly. EXTREMITIES: No pedal edema. SKIN: No rashes. NEUROLOGIC: Alert and oriented x3. No focal deficits. LABS: Labs from yesterday showed WBC 8.5, hemoglobin 9.4, platelets 358. LFTs are within normal limits. IMPRESSION: 1. Stage I lung cancer diagnosed last year, status post radiation therapy and patient did well. During this hospitalization, CT scan of the abdomen showed multiple pleural lesions and she underwent a pleural biopsy today. Results are pending. 2. Dilated pancreatic duct, questionable ampullary lesion. MRCP revealed the same. ERCP is not scheduled yet. Will decide this based on her pleural biopsy results. LFTs are normal. No evidence of biliary obstruction. RECOMMENDATIONS: 1. Await biopsy results. 2. Monitor LFTs daily. 3. Will follow with you closely and, based on the biopsy results of the pleural lesions, will decide if she needs an ERCP in the future. The plan was discussed with Dr. Pruett. He is agreeable to it. Thank you for this consultation. MMODL / IJN: [id number] /
== END 2019-07-05 17:57 | disposition home or self-care (01) | DRG 543 ==
LOC: EC 12:16 → 5NMEDONC 16:24
PROVIDERS: ADMIT Hospitalist; ATTEND Hospitalist
DX: C79.51 Secondary malignant neoplasm of bone (principal); C34.90 Malignant neoplasm of unspecified part of unspecified bronchus or lung; C78.2 Secondary malignant neoplasm of pleura; E44.1 Mild protein-calorie malnutrition; E87.1 Hypo-osmolality and hyponatremia; K56.609 Unspecified intestinal obstruction, unspecified as to partial versus complete obstruction; D63.8 Anemia in other chronic diseases classified elsewhere; K83.8 Other specified diseases of biliary tract; F03.90 Unspecified dementia, unspecified severity, without behavioral disturbance, psychotic disturbance, mood disturbance, and anxiety; D50.9 Iron deficiency anemia, unspecified; E03.9 Hypothyroidism, unspecified; F17.200 Nicotine dependence, unspecified, uncomplicated; I73.9 Peripheral vascular disease, unspecified; J45.909 Unspecified asthma, uncomplicated; K59.00 Constipation, unspecified; K57.90 Diverticulosis of intestine, part unspecified, without perforation or abscess without bleeding; R45.1 Restlessness and agitation; I70.0 Atherosclerosis of aorta; E78.5 Hyperlipidemia, unspecified; R32 Unspecified urinary incontinence; R29.6 Repeated falls; Z79.890 Hormone replacement therapy; Z79.899 Other long term (current) drug therapy; Z92.3 Personal history of irradiation; Z88.8 Allergy status to other drugs, medicaments and biological substances; Z68.21 Body mass index [BMI] 21.0-21.9, adult; Z82.49 Family history of ischemic heart disease and other diseases of the circulatory system; Z80.8 Family history of malignant neoplasm of other organs or systems
CPT/HCPCS: 36415; 70553; 71045; 71250; 74177; 74183; 77012; 78306; 80048; 80053; 81001; 82150; 82378; 82607; 82728; 82746; 83540; 83550; 83605; 83615; 83690; 83921; 85025; 85610; 85730; 86301; 86304; 87086; 94640; 96361; 96374; 96375; 96376; 99285